=== PATIENT | female | born 1965 | race Caucasian/White ===

== ENCOUNTER 2021-06-30 18:14 | Emergency (ER) | payer BC ==
[2021-06-30 18:58] VITALS: RESP 18
[2021-06-30] MEDS ORDERED: IBUPROFEN 800 MG TAB PO STA (20:07)
[2021-06-30] MEDS ORDERED: DIPH,PERTUS(ACELL)TETVAC-LF 0.5 ML VIAL IM ONE (20:12)
--- NOTE | 2021-06-30 20:12 | ED ---
Fall HPI - General Chief Complaint: Fall Stated Complaint: Fall/shoulder injury Source: patient Mode of arrival: ambulatory - History of Present Illness Initial Comments: A 56-year-old well-appearing pleasant white female, presents to the emergency room with complaints of walking backwards today around 6 PM and tripping landing on her right arm. Patient states the pain is to her right upper arm, states it is not her shoulder. She states the position of comfort is close to her chest. She denies hitting her head or any loss of consciousness. She has also sustained an abrasion to her right elbow. She states that she has no other medical history other than psoriasis and bad knees. 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 Loss of Consciousness: none Prolonged Down Time?: no Symptoms Prior to Fall: none Location - Extremities: Right: Arm Severity scale (1-10): 8 Quality: sharp Context: tripped/slipped Associated Symptoms: denies - Related Data Home Medications Medication Instructions Recorded Confirmed Aspirin EC [Ecotrin Low Dose] 81 mg PO DAILY 06/30/21 06/30/21 Enalapril [Vasotec] 5 mg PO DAILY 06/30/21 06/30/21 Escitalopram Oxalate [Lexapro] 20 mg PO DAILY 06/30/21 06/30/21 [place] Carbonate 300 mg PO BID 06/30/21 06/30/21 buPROPion XL [Wellbutrin Xl] 300 mg PO DAILY 06/30/21 06/30/21 Allergies Allergy/AdvReac Type Severity Reaction Status Date / Time No Known Allergies Allergy Verified 06/30/21 20:19 Review of Systems ROS Statement: Those systems with pertinent positive or pertinent negative responses have been documented in the HPI. ROS Other: All systems not noted in ROS Statement are negative. Past Medical History Past Medical History: Hypertension History of Any Multi-Drug Resistant Organisms: None Reported Past Surgical History: No Surgical Hx Reported Past Psychological History: Bipolar Smoking Status: Never smoker Past Alcohol Use History: None Reported Past Drug Use History: None Reported General Exam Limitations: no limitations General appearance: alert, in no apparent distress Head exam: Present: atraumatic, normocephalic, normal inspection Eye exam: Present: normal appearance, PERRL, EOMI. Absent: scleral icterus, conjunctival injection, periorbital swelling ENT exam: Present: normal exam, normal oropharynx, mucous membranes moist Neck exam: Present: normal inspection, full ROM. Absent: tenderness, meningismus, lymphadenopathy, thyromegaly Respiratory exam: Present: normal lung sounds bilaterally. Absent: respiratory distress, wheezes, rales, rhonchi, stridor Cardiovascular Exam: Present: regular rate, normal rhythm, normal heart sounds. Absent: systolic murmur, diastolic murmur, rubs, gallop, clicks GI/Abdominal exam: Present: soft, normal bowel sounds. Absent: distended, tenderness, guarding, rebound, rigid Right Upper Arm exam: Present: normal inspection, tenderness (pain at Proximal humerus). Absent: full ROM, swelling, laceration, ecchymosis, deformity Elbow exam: Present: abrasion. Absent: tenderness Forearm Wrist exam: Present: normal inspection, full ROM. Absent: tenderness Hand Wrist exam: Present: normal inspection, full ROM. Absent: tenderness Vascular: Present: normal capillary refill, radial pulse. Absent: vascular compromise Back exam: Present: full ROM. Absent: tenderness, CVA tenderness (R), CVA tenderness (L), muscle spasm, paraspinal tenderness, vertebral tenderness Neurological exam: Present: alert, oriented X3, CN II-XII intact Psychiatric exam: Present: normal affect, normal mood Skin exam: Present: warm, dry, intact, normal color. Absent: rash Course Vital Signs 06/30/21 06/30/21 18:48 21:44 Temperature 98.7 F 98.0 F Pulse Rate 95 90 Respiratory 18 18 Rate Blood Pressure 160/91 156/78 O2 Sat by Pulse 94 L 95 Oximetry Medical Decision Making - Medical Decision Making X-ray of the right humerus shows no fracture or dislocation. X-ray of right shoulder shows no fracture dislocation. Patient has no point tenderness along the clavicle. She states that after Motrin was given she has more movement and less pain. She'll be placed in a sling and instructed to follow-up with orthopedics within one week and return if any increasing pain. Directed to try to move the shoulder gently to avoid frozen shoulder. Case discussed with Dr. Adrian. Disposition Clinical Impression: Shoulder injury Disposition: HOME SELF-CARE Condition: Good Instructions (If sedation given, give patient instructions): Fall Prevention for Older Adults (ED), Shoulder Sprain (ED) Additional Instructions: Use sling for the next few days, follow-up with orthopedics within 1 week. Use Motrin as needed for pain. Return if any worsening pain, numbness or tingling. Is patient prescribed a controlled substance at d/c from ED?: No Referrals: Nonstaff,Physician [Primary Care Provider] - 1-2 days Teodoro Buck DO [Doctor of Osteopathic Medicine] - 1-2 days Time of Disposition: 21:23
--- NOTE | 2021-06-30 20:50 | XR ---
EXAMINATION TYPE: XR shoulder complete RT DATE OF EXAM: 06/30/2021 COMPARISON: NONE HISTORY: Pain TECHNIQUE: 3 views FINDINGS: There is no sign of fracture nor dislocation. Glenohumeral joint is intact. IMPRESSION: Negative right shoulder exam.
--- NOTE | 2021-06-30 21:02 | XR ---
EXAMINATION TYPE: XR humerus RT DATE OF EXAM: 06/30/2021 COMPARISON: NONE HISTORY: Pain TECHNIQUE: 2 views FINDINGS: Elbow joint and shoulder joint appear intact. I see no fracture nor dislocation. There are no pathologic calcifications. IMPRESSION: Negative right humerus exam.
[2021-06-30] MEDS ORDERED: BACITRACIN OINT 1 EACH PACKET TOPICAL ONE (21:23)
[2021-06-30 21:45] VITALS: BP 156/78; PULSE 90; TEMP 98
== END 2021-06-30 21:45 | disposition home or self-care (01) ==
LOC: EC 18:14
DX: S49.91XA Unspecified injury of right shoulder and upper arm, initial encounter (principal); I10 Essential (primary) hypertension; F31.9 Bipolar disorder, unspecified; Z79.82 Long term (current) use of aspirin; W01.0XXA Fall on same level from slipping, tripping and stumbling without subsequent striking against object, initial encounter
CPT/HCPCS: 99283

== ENCOUNTER 2021-11-09 15:21 | Inpatient (IN) | payer MEDICARE ==
--- NOTE | 2021-11-09 16:09 | ED ---
General Adult HPI - General Chief complaint: Psychiatric Symptoms Stated complaint: Petition Time Seen by Provider: 11/09/21 15:55 Source: patient, police Mode of arrival: ambulatory - History of Present Illness Initial comments: This 56-year-old female presents for court ordered psychiatric evaluation. Her son filled out paperwork in this regard. She apparently has a history of bipolar disorder with 14+ psychiatric admissions in the past for similar situations. The patient has been having very bizarre behavior and thought processes. She talks about Satan a lot now she is out to get him. She denies any hallucinations or delusions. She denies any anxiety or depression. She does admit that she has bipolar disorder and states that she is currently taking her medications and is on lithium. She denies any current medical complaints. No other modifying factors. The exact time duration of the symptomatology is difficult to differentiate. History is somewhat limited due to patient's psychosis. - Related Data Home Medications Medication Instructions Recorded Confirmed Aspirin EC [Ecotrin Low Dose] 81 mg PO DAILY 06/30/21 06/30/21 Enalapril [Vasotec] 5 mg PO DAILY 06/30/21 06/30/21 Escitalopram Oxalate [Lexapro] 20 mg PO DAILY 06/30/21 06/30/21 [place] Carbonate 300 mg PO BID 06/30/21 06/30/21 buPROPion XL [Wellbutrin Xl] 300 mg PO DAILY 06/30/21 06/30/21 Allergies Allergy/AdvReac Type Severity Reaction Status Date / Time No Known Allergies Allergy Verified 11/09/21 15:41 Review of Systems ROS Statement: Those systems with pertinent positive or pertinent negative responses have been documented in the HPI. ROS Other: All systems not noted in ROS Statement are negative. Past Medical History Past Medical History: Hypertension History of Any Multi-Drug Resistant Organisms: None Reported Past Surgical History: No Surgical Hx Reported Past Psychological History: Bipolar Smoking Status: Never smoker Past Alcohol Use History: None Reported Past Drug Use History: None Reported General Exam - General Exam Comments Initial Comments: GENERAL: The patient is well nourished and well hydrated. VITAL SIGNS: Heart rate, blood pressure, respiratory rate reviewed as recorded in nurse's notes. EYES: Pupils are round and reactive. Extraocular movements are intact. No conjunctival / lid redness or swelling. ENT: No external evidence of injury, swelling, or ecchymosis. Airway is patent. Throat is clear. NECK: Nontender. No swelling or evidence of injury. No subcutaneous emphysema. Trachea is midline. No thyroid mass. HEART: Regular rate and rhythm. Good peripheral pulses. LUNGS/CHEST: Breath sounds clear and equal bilaterally. No rales, rhonchi, or wheezes. No ecchymosis, subcutaneous emphysema, or tenderness. ABDOMEN: Abdomen soft without tenderness. No palpable masses or organomegaly. No peritoneal signs. No abdominal wall swelling or ecchymosis. EXTREMITIES: No extremity tenderness. Normal muscle tone and function. No thoracolumbar tenderness. NEUROLOGIC: Sensation is grossly intact. Cranial nerve exam reveals face is symmetrical, tongue is midline, speech is clear. SKIN: No abrasions or ecchymosis is noted. A diffuse rash is noted. This is scaly and consistent with her history of psoriasis. PSYCHIATRIC: Alert and pleasant, cooperative. She appears to have very bizarre thought processes and congregational grandiose thoughts. Course Vital Signs 11/09/21 15:37 Temperature 98.4 F Pulse Rate 76 Respiratory 18 Rate Blood Pressure 153/92 O2 Sat by Pulse 96 Oximetry Medical Decision Making - Medical Decision Making The patient is seen and examined. Social work/psychiatric consult is placed. Court ordered petition is reviewed. Laboratory and urine screen are ordered. Laboratory was reviewed and overall appears to be fairly unremarkable but the lithium level is subtherapeutic. It is felt as though the patient may be medically cleared for further psychiatric evaluation. Of note, she becomes quite overtly verbal, aggressive, and is yelling multiple extreme profanities. She threw up potato at the observer. She receives 10 mg of Zyprexa with limited relief. This was given intramuscularly. She later received 2 mg of Ativan and this seemed to help her symptomatology. It is felt strongly that she would require additional psychiatric treatment. Stat follow-up that he was recognized from the Internet from being on national he recognized psychotic episodes while at [place] in the past. The psychiatric team will be evaluating her in the near future. - Lab Data Result diagrams: 11/09/21 16:34 11/09/21 16:34 Lab Results 11/09/21 11/09/21 Range/Units 16:34 16:34 WBC 7.5 (3.8-10.6) k/uL RBC 4.25 (3.80-5.40) m/uL Hgb 13.1 (11.4-16.0) gm/dL Hct 40.3 (34.0-46.0) % MCV 94.7 (80.0-100.0) fL MCH 30.9 (25.0-35.0) pg MCHC 32.6 (31.0-37.0) g/dL RDW 13.7 (11.5-15.5) % Plt Count 302 (150-450) k/uL MPV 6.5 Neutrophils % 54 % Lymphocytes % 32 % Monocytes % 4 % Eosinophils % 5 % Basophils % 1 % Neutrophils # 4.1 (1.3-7.7) k/uL Lymphocytes # 2.4 (1.0-4.8) k/uL Monocytes # 0.3 (0-1.0) k/uL Eosinophils # 0.4 (0-0.7) k/uL Basophils # 0.1 (0-0.2) k/uL Sodium 139 (137-145) mmol/L Potassium 4.1 (3.5-5.1) mmol/L Chloride 105 (98-107) mmol/L Carbon Dioxide 26 (22-30) mmol/L Anion Gap 8 mmol/L BUN 21 H (7-17) mg/dL Creatinine 1.03 (0.52-1.04) mg/dL Est GFR (CKD-EPI)AfAm 71 (>60 ml/min/1.73 sqM) Est GFR (CKD-EPI)NonAf 62 (>60 ml/min/1.73 sqM) Glucose 103 H (74-99) mg/dL Calcium 9.7 (8.4-10.2) mg/dL [place] 0.4 mmol/L Disposition Clinical Impression: Acute psychosis, Bipolar disorder Disposition: ADMITTED IP TO THIS HOSP Condition: Fair Is patient prescribed a controlled substance at d/c from ED?: No Referrals: None,Stated [REFERRING] - 1-2 days Time of Disposition: 19:08
[2021-11-09 16:43] LABS: Basophils # (A) 0.1 k/uL (0-0.2); Basophils % (A) 1 %; Eosinophils # (A) 0.4 k/uL (0-0.7); Eosinophils % (A) 5 %; HCT 40.3 % (34.0-46.0); HGB 13.1 gm/dL (11.4-16.0); Lymphocytes # (A) 2.4 k/uL (1.0-4.8); Lymphocytes % (A) 32 %; MCH 30.9 pg (25.0-35.0); MCHC 32.6 g/dL (31.0-37.0); MCV 94.7 fL (80.0-100.0); Mean Platelet Volume 6.5; Monocytes # (A) 0.3 k/uL (0-1.0); Monocytes % (A) 4 %; Neutrophils # (A) 4.1 k/uL (1.3-7.7); Neutrophils % (A) 54 %; Platelet Count 302 k/uL (150-450); RBC 4.25 m/uL (3.80-5.40); RDW 13.7 % (11.5-15.5); WBC 7.5 k/uL (3.8-10.6)
[2021-11-09 16:56] LABS: Calcium 9.7 mg/dL (8.4-10.2); Lithium 0.4 mmol/L; Potassium 4.1 mmol/L (3.5-5.1)
[2021-11-09] MEDS ORDERED: OLANZapine 10 MG VIAL IM STA (17:33)
[2021-11-09] MEDS ORDERED: LORazepam 2 MG/ML INJ IM STA (18:01)
--- NOTE | 2021-11-09 20:16 | CT ---
EXAMINATION TYPE: CT brain wo con CT DLP: 1217.4 mGycm, Automated exposure control for dose reduction was used. DATE OF EXAM: 11/09/2021 7:47 PM COMPARISON: None. CLINICAL INDICATION:Female, 56 years old with history of altered mental status; TECHNIQUE: Brain: Multiple axial CT images of the brain were obtained without IV contrast. FINDINGS: Brain: Extra-axial spaces: No abnormal extra-axial fluid collections. Ventricular system: Within normal limits Cerebral parenchyma: Right cheng radiata/caudate nucleus density which may represent prominent is lo be lacunar injury. No acute intraparenchymal hemorrhage or mass effect. The blount-white junction is w ell differentiated. Cerebellum: Unremarkable. Mass effect: No evidence of midline shift. Intracranial vasculature: unremarkable Soft tissues: Normal. Calvarium/osseous structures: No depressed skull fracture. Paranasal sinuses and mastoid air cells: Clear. Visualized orbits: Orbital contents are intact. IMPRESSION: No acute intracranial process.
[2021-11-10] MEDS ORDERED: LORazepam 1 MG TAB PO PRN ×2 (00:53→12:47)
[2021-11-10] MEDS ORDERED: MAG HYDROX/AL HYDROX/SIMETH 30 ML CUP PO PRN (00:53)
[2021-11-10] MEDS ORDERED: ACETAMINOPHEN TAB 325 MG TAB PO PRN (00:53)
[2021-11-10] MEDS ORDERED: MAGNESIUM HYDROXIDE 2,400 MG/10 ML CUP PO PRN (00:53)
[2021-11-10] MEDS ORDERED: haloperidoL 5 MG TAB PO PRN (00:55)
[2021-11-10] MEDS ORDERED: LORazepam 2 MG/ML INJ IM PRN ×2 (00:55→12:47)
[2021-11-10 00:58] LABS: Appearance,Urine Clear (Clear); Bilirubin,Urine Negative (Negative); Blood,Urine Negative (Negative); Color,Urine Light Yellow; Glucose,Urine (UA) Negative (Negative); Ketones,Urine Negative (Negative); Leukocyte Esterase,Urine Negative (Negative); Nitrite,Urine Negative (Negative); Protein,Urine Negative (Negative); Specific Gravity,Urine 1.012 (1.001-1.035); Urobilinogen,Urine <2.0 mg/dL (<2.0)
[2021-11-10 01:26] LABS: Amphetamine Screen,Urine Not Detected (NotDetected); Barbiturate Screen,Urine Not Detected (NotDetected); Benzodiazepines Screen,Urine Not Detected (NotDetected); Cocaine Screen,Urine Not Detected (NotDetected); Methadone Screen, Urine Not Detected (NotDetected); Opiate Screen,Urine Not Detected (NotDetected); Oxycodone Screen, Urine Not Detected (NotDetected); Phencyclidine Screen,Urine Not Detected (NotDetected); Tricyclic Antidepressant,Urine Not Detected (NotDetected); Urn Cannabinoid Scrn Not Detected (NotDetected)
[2021-11-10] MEDS: traZODone HCL 50 MG TAB PO SCH ×2 (03:14→21:01)
[2021-11-10] MEDS: ASPIRIN 81 MG PO SCH (08:37)
[2021-11-10] MEDS: lisinopriL 10 MG TAB PO SCH (08:37)
[2021-11-10] MEDS: LITHIUM CARBONATE 300 MG CAP PO SCH ×2 (08:38→13:50)
[2021-11-10] MEDS ORDERED: diphenhydrAMINE 50 MG/ML 1 ML VIAL IM STA (12:13)
[2021-11-10] MEDS ORDERED: diphenhydrAMINE 50 MG/ML 1 ML VIAL ONE (12:14)
[2021-11-10] MEDS: HALOPERIDOL LACTATE 5 MG/ML 1 ML VIAL IM PRN (12:25)
--- NOTE | 2021-11-10 12:30 | P.MHFACE ---
Face to Face Restrain/Seclus - Evaluation Patient's Immediate Situation: Endangers self safety, Endangers others' safety, Endangers staff safety, Violent behavior Patient's Reaction to the Intervention: Angry, Hostile, Belligerent, Suspicious, Aggressive, Combative Patient's Medical & Behavioral Condition: Awake, Manic, Flight of ideas, Bizarre behavior Need to Continue or Terminate Restraint or Seclusion: Continue Need to Continue or Terminate Restraint/Seclusion - Comment: Continue restraints as we await response to medications. Face to Face Eval of Restraint Date: 11/10/21 Face to Face Eval of Restraint Time: 12:20
[2021-11-10] MEDS ORDERED: diphenhydrAMINE 50 MG/ML 1 ML VIAL IM PRN (12:53)
--- NOTE | 2021-11-10 13:35 | P.HP ---
Psychiatric H&P - . H&P Date: 11/10/21 History & Physical: Allergies Allergy/AdvReac Type Severity Reaction Status Date / Time No Known Allergies Allergy Verified 11/09/21 15:41 Vital Signs Temp 97.5 F L 11/10/21 01:55 Pulse 79 11/10/21 08:39 Resp 18 11/10/21 01:55 BP 131/62 11/10/21 08:39 Pulse Ox 98 11/10/21 01:55 Intake & Output 11/09/21 11/10/21 11/10/21 18:59 06:59 18:59 Weight 113.398 kg 109.344 kg Laboratory Last Values WBC 7.5 k/uL (3.8-10.6) 11/09/21 16:34 RBC 4.25 m/uL (3.80-5.40) 11/09/21 16:34 Hgb 13.1 gm/dL (11.4-16.0) 11/09/21 16:34 Hct 40.3 % (34.0-46.0) 11/09/21 16:34 MCV 94.7 fL (80.0-100.0) 11/09/21 16:34 MCH 30.9 pg (25.0-35.0) 11/09/21 16:34 MCHC 32.6 g/dL (31.0-37.0) 11/09/21 16:34 RDW 13.7 % (11.5-15.5) 11/09/21 16:34 Plt Count 302 k/uL (150-450) 11/09/21 16:34 MPV 6.5 11/09/21 16:34 Neutrophils % 54 % 11/09/21 16:34 Lymphocytes % 32 % 11/09/21 16:34 Monocytes % 4 % 11/09/21 16:34 Eosinophils % 5 % 11/09/21 16:34 Basophils % 1 % 11/09/21 16:34 Neutrophils # 4.1 k/uL (1.3-7.7) 11/09/21 16:34 Lymphocytes # 2.4 k/uL (1.0-4.8) 11/09/21 16:34 Monocytes # 0.3 k/uL (0-1.0) 11/09/21 16:34 Eosinophils # 0.4 k/uL (0-0.7) 11/09/21 16:34 Basophils # 0.1 k/uL (0-0.2) 11/09/21 16:34 Sodium 139 mmol/L (137-145) 11/09/21 16:34 Potassium 4.1 mmol/L (3.5-5.1) 11/09/21 16:34 Chloride 105 mmol/L (98-107) 11/09/21 16:34 Carbon Dioxide 26 mmol/L (22-30) 11/09/21 16:34 Anion Gap 8 mmol/L 11/09/21 16:34 BUN 21 mg/dL (7-17) H 11/09/21 16:34 Creatinine 1.03 mg/dL (0.52-1.04) 11/09/21 16:34 Est GFR (CKD-EPI)AfAm 71 (>60 ml/min/1.73 sqM) 11/09/21 16:34 Est GFR (CKD-EPI)NonAf 62 (>60 ml/min/1.73 sqM) 11/09/21 16:34 Glucose 103 mg/dL (74-99) H 11/09/21 16:34 Calcium 9.7 mg/dL (8.4-10.2) 11/09/21 16:34 Urine Color Light Yellow 11/10/21 00:34 Urine Appearance Clear (Clear) 11/10/21 00:34 Urine pH 6.0 (5.0-8.0) 11/10/21 00:34 Ur Specific [place] 1.012 (1.001-1.035) 11/10/21 00:34 Urine Protein Negative (Negative) 11/10/21 00:34 Urine Glucose (UA) Negative (Negative) 11/10/21 00:34 Urine Ketones Negative (Negative) 11/10/21 00:34 Urine Blood Negative (Negative) 11/10/21 00:34 Urine Nitrite Negative (Negative) 11/10/21 00:34 Urine Bilirubin Negative (Negative) 11/10/21 00:34 Urine Urobilinogen <2.0 mg/dL (<2.0) 11/10/21 00:34 Ur Leukocyte Esterase Negative (Negative) 11/10/21 00:34 Urine Opiates Screen Not Detected (NotDetected) 11/10/21 00:34 Ur Oxycodone Screen Not Detected (NotDetected) 11/10/21 00:34 Urine Methadone Screen Not Detected (NotDetected) 11/10/21 00:34 Ur Propoxyphene Screen Not Detected (NotDetected) 11/10/21 00:34 Ur Barbiturates Screen Not Detected (NotDetected) 11/10/21 00:34 U Tricyclic Antidepress Not Detected (NotDetected) 11/10/21 00:34 Ur Phencyclidine Scrn Not Detected (NotDetected) 11/10/21 00:34 Ur Amphetamines Screen Not Detected (NotDetected) 11/10/21 00:34 U Methamphetamines Scrn Not Detected (NotDetected) 11/10/21 00:34 U Benzodiazepines Scrn Not Detected (NotDetected) 11/10/21 00:34 [place] 0.4 mmol/L 11/09/21 16:34 Urine Cocaine Screen Not Detected (NotDetected) 11/10/21 00:34 U Marijuana (THC) Screen Not Detected (NotDetected) 11/10/21 00:34 Coronavirus (PCR) Not Detected (Not Detectd) 11/09/21 21:41 11/10/21 13:26 IDENTIFYING DATA: Patient is a 56-year-old female who currently lives alone in the house has one son. She has a history of dipolar disorder HPI: Patient presented to the hospital yesterday on petition by her son who stat ed that patient has been having poor sleep and has been religiously preoccupied and speaking about Satan and has been very delusional and aggressive. Patient apparently has a history of bipolar disorder with multiple psychiatric hospitalizations and was acting bizarre and aggressive in the ER yesterday. She required when necessary Zyprexa and Ativan for her aggression as she was yelling and throwing things at staff members. Patient had a computed tomography scan of her brain which was negative. UDS and UA were negative. Her lithium level was 0.4 on admission. Patient was brought in by the police for evaluation and treatment. Patient was admitted to the psychiatric unit involuntarily. She was seen at the bedside today with a female nurse implementation technician present. Patient was initially directable in conversation however was preoccupied with "Karl" and states that "Satan is desperate and trying to control me. He accuses health underwriter of working with [facility] to bring her into the hospital. She spoke about a "Jaimes of fire and states that "Karl doesn't want to go to hell". She was fairly illogical and loose associations. As the conversation progressed she became more agitated and impulsive with health underwriter. She called the health underwriter a "pussy" and states that she will be refusing the medications. She claims that she decompensates every year around this time. She states that she has been having poor sleep and claims she has a fair appetite. She claims that she has been taking her psychiatric meds however does not apparently see a psychiatrist. She was alert and oriented 3 however had very poor insight in judgment and poor hygiene and grooming.. Patient denies any suicidal or homicidal ideations intent or plan. At this time patient denies any auditory or visual hallucinations. She denies any recreational drug use. PAST PSYCHIATRIC HISTORY: Patient states that bipolar disorder since the age of [age] years old. She claims that she is on lithium, Wellbutrin and Lexapro. She claims that she has been to several psychiatric hospitals in the past and claims that her last admission was 2 years ago possibly at [facility]. Patient denies any psychiatric outpatient follow-up. She states that she does have a history of self-injurious behaviors where she "knawed on my arm" PMH:psoriasis, htn ALLERGIES: as per EMR CHEMICAL DEPENDENCY HISTORY: as per HPI FAMILY PSYCHIATRIC/SUBSTANCE USE HISTORY: States that her mother and grandmother had bipolar disorder. SOCIAL HISTORY: Patient was born and raised in [facility]. She states that she completed up to the 10th grade in school. She claims that she has been in long-term in the past for "destruction of property". She has 1 son and lives alone in a house. MENTAL STATUS EXAM: General Appearance: Patient appears to be overweight, various psoriatic plaques over her arms, stated age is alert, aggressive and hostile at times. Patient appears to have poor hygiene and grooming. Behavior: Patient is intrusive and aggressive Speech: Patient's speech is rapid and loud tone. Mood/Affect: Patient reports their mood is "fine", affect is congruent and labile Suicidality/Homicidality: Patient denies having any homicidal ideation intent or plan. Denies any suicidal ideations intent or plan Perceptions: Patient denies any visual hallucinations and denies any auditory hallucinations Though content/process: Rambles, tangential, illogical, loose associations, flight of ideas. Memory and concentration: AOX3, grossly intact for the purposes of this session. Can spell "WORLD" backwards Judgment and insight: poor STRENGTHS/WEAKNESSES: strength is that patient is resilient. Weakness is that patient has poor judgment and is impulsive INTELLECT: average IMPRESSIONS: Bipolar disorder, current episode manic with psychotic features PLAN: -Patient is admitted under involuntary status to [facility] for stabilization of psychiatric symptoms and safety. Patient has not signed adult voluntary form and medication consent and is placed in patient's chart. A second certification was completed and along with petition will be filed for court. -Medications : Will start patient on Abilify 7.5 mg daily for mood stabilization/psychosis. We will attempt to transition patient onto long-acting injection prior to discharge. Can continue with lithium 450 mg twice a day for mood stabilization. Trazodone 50 mg daily at bedtime for sleep. -Ativan, Benadryl and Haldol PRN for agitation/aggression -Patient was informed of the risks, benefits and side effects of the medication and patient was refusing to take medications. -Internal Medicine consult to perform medical evaluation and physical. -NRT -not needed as patient does not smoke -SW on board for discharge planning. Encourage patient to participate in groups to work on coping skills. Will await deferral and court date.
[2021-11-10] MEDS: ARIPiprazole 5 MG TAB PO SCH ×2 (13:42→13:50)
[2021-11-10] MEDS: LITHIUM CARBONATE 150 MG CAP PO SCH (21:01)
--- NOTE | 2021-11-11 01:04 | P.PN ---
Progress Note - Text Progress Note Date: 11/11/21 Patient uncooperative and sedated. Unable to evaluate. Will attempt again tomorrow.
[2021-11-11] MEDS: LITHIUM CARBONATE 150 MG CAP PO SCH ×2 (13:28→22:07)
[2021-11-11] MEDS: lisinopriL 10 MG TAB PO SCH (13:53)
[2021-11-11] MEDS: ASPIRIN 81 MG PO SCH (13:53)
[2021-11-11] MEDS: ARIPiprazole 5 MG TAB PO SCH (13:53)
--- NOTE | 2021-11-11 14:21 | P.PN ---
Progress Note - Text Progress Note Date: 11/11/21 Interval History: Patient was seen lying in the quiet room and was just waking up from sleep. P cheri required prn medication last night due to agitation and aggression and was also requiring restraints yesterday. Patient responded to her name. She continues to be delusional in speaking about Satan telling her to do things. She was refusing the medications morning and stated that she does not need them. She was asked if she would take another antipsychotic medication however patient refused other options claiming very vague problems with them. She continues to have very poor impulsivity and poor judgment. She continues to make bizarre statements and religiously preoccupied. At this time patient denies any suicidal or homical ideations, intent or plan. Patient denies any auditory, visual hallucinations. She has been refusing medications. Mental Status Exam: General Appearance: Patient appears to be overweight, various psoriatic plaques over her arms, stated age is lethargic and laying in bed. Patient appears to have poor hygiene and grooming. Behavior: Patient is intrusive and lethargic, laying in bed. Uncooperative Speech: Patient's speech is rapid and loud tone. Mood/Affect: Patient reports their mood is "ok", affect is congruent Suicidality/Homicidality: Patient denies having any homicidal ideation intent or plan. Denies any suicidal ideations intent or plan Perceptions: Patient denies any visual hallucinations and denies any auditory hallucinations Though content/process: Rambles, tangential, illogical, loose associations, flight of ideas. Memory and concentration: AOX3, grossly intact for the purposes of this session. Can spell "WORLD" backwards Judgment and insight: poor Assessment Bipolar disorder, current episode manic with psychotic features Plan: -Patient continues to meet criteria for inpatient psychiatric admission for symptom stabilization and safety. Patient has not signed adult voluntary form and medication consent and was placed in patient's chart. -Medications: Continue with Abilify 7.5 mg daily for mood stabilization/psychosis. We will attempt to transition patient onto long-acting injection prior to discharge. Continue with lithium 450 mg twice a day for mood stabilization. increase Trazodone 100 mg daily at bedtime for sleep. -When necessary Ativan, Benadryl and Haldol for agitation/aggression. -NRT - not needed as patient does not smoke -SW on board for discharge planning. Encouraged the patient to participate in milieu. Currently awaiting deferral with human resources department supervisor and court date.
[2021-11-11] MEDS: HALOPERIDOL LACTATE 5 MG/ML 1 ML VIAL IM PRN (14:52)
[2021-11-11] MEDS: traZODone HCL 100 MG TAB PO SCH (22:07)
--- NOTE | 2021-11-12 00:45 | P.PN ---
Progress Note - Text Progress Note Date: 11/12/21 Patient currently manic and not appropriate for evaluation. Will attempt again tomorrow.
[2021-11-12] MEDS: traZODone HCL 100 MG TAB PO SCH (01:20)
[2021-11-12] MEDS: LITHIUM CARBONATE 150 MG CAP PO SCH ×2 (01:20→11:52)
--- NOTE | 2021-11-12 11:36 | P.PN ---
Progress Note - Text Progress Note Date: 11/12/21 Interval History: Patient was seen lying in the quiet room and was just waking up from sleep. Kiera krause was accompanied by security trainer today for interview with patient due to her impulsivity and agitation previously. Patient was sleeping and was awoken briefly by principal technical writer. She was fairly concrete and was less focused on her delusions today. She minimally spoke about Satan today. She claims that she still does not want to take Abilify however was offered Prolixin and states that she has taken that in the past and was willing to take it today. Cordwood Cutter spoke with patient about her rights and also to speak with the checkering machine adjuster today about the deferral. Patient claims that she did not sleep well last night. She has very minimal insight into her condition and need for treatment. She apparently was fairly disruptive during group yesterday. She was refusing the medications morning and stated that she does not need them. At this time patient denies any suicidal or homical ideations, intent or plan. Patient denies any auditory, visual hallucinations. She has been refusing medications. Mental Status Exam: General Appearance: Patient appears to be overweight, various psoriatic plaques over her arms, stated age is lethargic and laying in bed. Patient appears to have poor hygiene and grooming. Behavior: Patient is intrusive and lethargic, laying in bed. Uncooperative, improving mildly Speech: Patient's speech is rapid and soft today Mood/Affect: Patient reports their mood is "fine", affect is congruent and constricted Suicidality/Homicidality: Patient denies having any homicidal ideation intent or plan. Denies any suicidal ideations intent or plan Perceptions: Patient denies any visual hallucinations and denies any auditory hallucinations Though content/process: illogical, loose associations, flight of ideas, improving mildly. Less delusional today. Memory and concentration: AOX3, grossly intact for the purposes of this session. Can spell "WORLD" backwards Judgment and insight: Chronically poor Assessment Bipolar disorder, current episode manic with psychotic features Plan: -Patient continues to meet criteria for inpatient psychiatric admission for symptom stabilization and safety. Patient has not signed adult voluntary form and medication consent and was placed in patient's chart. -Medications: Discontinued Abilify as patient is not agreeable to take this and would rather take Prolixin. Starting Prolixin by mouth 5 mg twice a day for psychosis/mood stabilization. We will attempt to transition patient onto long- acting injection prior to discharge. Continue with lithium 450 mg twice a day for mood stabilization. Trazodone 100 mg daily at bedtime for sleep. -When necessary Ativan, Benadryl and Haldol for agitation/aggression. -NRT - not needed as patient does not smoke -SW on board for discharge planning. Encouraged the patient to participate in milieu. Patient's deferral is today and full court hearing is December 01.
[2021-11-12] MEDS ORDERED: LITHIUM CARBONATE 150 MG CAP PO STA (11:45)
[2021-11-12] MEDS: lisinopriL 10 MG TAB PO SCH (11:51)
[2021-11-12] MEDS: ASPIRIN 81 MG PO SCH (11:52)
[2021-11-12] MEDS: ARIPiprazole 5 MG TAB PO SCH (11:57)
--- NOTE | 2021-11-12 23:01 | P.PN ---
Progress Note - Text Progress Note Date: 11/12/21 The patient refused to be seen or evaluated.
[2021-11-13] MEDS: LITHIUM CARBONATE 150 MG CAP PO SCH ×3 (02:15→21:00)
[2021-11-13] MEDS: lisinopriL 10 MG TAB PO SCH (08:59)
[2021-11-13] MEDS: ASPIRIN 81 MG PO SCH (09:00)
--- NOTE | 2021-11-13 12:19 | P.PN ---
Subjective Progress Note Date: 11/13/21 Principal diagnosis: Assessment: Bipolar disorder current episode manic with psychotic features Subjective data: Patient was seen for a follow-up where she became extremely irritated and angry when woken up Patient started using foul language Further attempt to interview the patient was abandoned to avoid any further escalation knowing her current history Objective data: The patient remains delusional agitated impulsive and aggressive Patient exhibits flight of ideas and looseness of associations Patient also exhibits paranoia Patient's formal and operational judgment and insight are poor No EPS or tremors noted Assessment: Bipolar disorder, current episode manic with psychotic features Plan: Continue supportive care Avoid any escalation of provocation by keeping in a low stimulating area and supportive care Maintain safety precautions The patient has been started on Prolixin in 5 mg twice a day and long-acting injection is recommended prior to discharge Patient is also being continued on lithium carbonate 450 mg twice a day for mood stabilization and trazodone 100 mg at bedtime for insomni Donnie Wright MD 11/13/21 Objective - Vital Signs Vital signs: Vital Signs Temp 97.6 F 11/13/21 02:17 Pulse 89 11/13/21 09:28 Resp 16 11/13/21 09:28 BP 116/70 11/13/21 09:28 Pulse Ox 96 11/12/21 01:19 - Labs CBC & Chem 7: 11/09/21 16:34 11/09/21 16:34
[2021-11-13] MEDS: traZODone HCL 100 MG TAB PO SCH (21:00)
[2021-11-14] MEDS: LITHIUM CARBONATE 150 MG CAP PO SCH (10:02)
[2021-11-14] MEDS: ASPIRIN 81 MG PO SCH (10:02)
[2021-11-14] MEDS: lisinopriL 10 MG TAB PO SCH (10:02)
--- NOTE | 2021-11-14 12:38 | P.HP ---
Psychiatric H&P - . H&P Date: 11/14/21 History & Physical: Allergies Allergy/AdvReac Type Severity Reaction Status Date / Time No Known Allergies Allergy Verified 11/09/21 15:41 Vital Signs Temp 96.9 F L 11/14/21 05:22 Pulse 76 11/14/21 05:22 Resp 16 11/14/21 05:22 BP 136/59 11/14/21 05:22 Pulse Ox 96 11/12/21 01:19 Laboratory Last Values WBC 7.5 k/uL (3.8-10.6) 11/09/21 16:34 RBC 4.25 m/uL (3.80-5.40) 11/09/21 16:34 Hgb 13.1 gm/dL (11.4-16.0) 11/09/21 16:34 Hct 40.3 % (34.0-46.0) 11/09/21 16:34 MCV 94.7 fL (80.0-100.0) 11/09/21 16:34 MCH 30.9 pg (25.0-35.0) 11/09/21 16:34 MCHC 32.6 g/dL (31.0-37.0) 11/09/21 16:34 RDW 13.7 % (11.5-15.5) 11/09/21 16:34 Plt Count 302 k/uL (150-450) 11/09/21 16:34 MPV 6.5 11/09/21 16:34 Neutrophils % 54 % 11/09/21 16:34 Lymphocytes % 32 % 11/09/21 16:34 Monocytes % 4 % 11/09/21 16:34 Eosinophils % 5 % 11/09/21 16:34 Basophils % 1 % 11/09/21 16:34 Neutrophils # 4.1 k/uL (1.3-7.7) 11/09/21 16:34 Lymphocytes # 2.4 k/uL (1.0-4.8) 11/09/21 16:34 Monocytes # 0.3 k/uL (0-1.0) 11/09/21 16:34 Eosinophils # 0.4 k/uL (0-0.7) 11/09/21 16:34 Basophils # 0.1 k/uL (0-0.2) 11/09/21 16:34 Sodium 139 mmol/L (137-145) 11/09/21 16:34 Potassium 4.1 mmol/L (3.5-5.1) 11/09/21 16:34 Chloride 105 mmol/L (98-107) 11/09/21 16:34 Carbon Dioxide 26 mmol/L (22-30) 11/09/21 16:34 Anion Gap 8 mmol/L 11/09/21 16:34 BUN 21 mg/dL (7-17) H 11/09/21 16:34 Creatinine 1.03 mg/dL (0.52-1.04) 11/09/21 16:34 Est GFR (CKD-EPI)AfAm 71 (>60 ml/min/1.73 sqM) 11/09/21 16:34 Est GFR (CKD-EPI)NonAf 62 (>60 ml/min/1.73 sqM) 11/09/21 16:34 Glucose 103 mg/dL (74-99) H 11/09/21 16:34 Calcium 9.7 mg/dL (8.4-10.2) 11/09/21 16:34 Urine Color Light Yellow 11/10/21 00:34 Urine Appearance Clear (Clear) 11/10/21 00:34 Urine pH 6.0 (5.0-8.0) 11/10/21 00:34 Ur Specific Toney 1.012 (1.001-1.035) 11/10/21 00:34 Urine Protein Negative (Negative) 11/10/21 00:34 Urine Glucose (UA) Negative (Negative) 11/10/21 00:34 Urine Ketones Negative (Negative) 11/10/21 00:34 Urine Blood Negative (Negative) 11/10/21 00:34 Urine Nitrite Negative (Negative) 11/10/21 00:34 Urine Bilirubin Negative (Negative) 11/10/21 00:34 Urine Urobilinogen <2.0 mg/dL (<2.0) 11/10/21 00:34 Ur Leukocyte Esterase Negative (Negative) 11/10/21 00:34 Urine Opiates Screen Not Detected (NotDetected) 11/10/21 00:34 Ur Oxycodone Screen Not Detected (NotDetected) 11/10/21 00:34 Urine Methadone Screen Not Detected (NotDetected) 11/10/21 00:34 Ur Propoxyphene Screen Not Detected (NotDetected) 11/10/21 00:34 Ur Barbiturates Screen Not Detected (NotDetected) 11/10/21 00:34 U Tricyclic Antidepress Not Detected (NotDetected) 11/10/21 00:34 Ur Phencyclidine Scrn Not Detected (NotDetected) 11/10/21 00:34 Ur Amphetamines Screen Not Detected (NotDetected) 11/10/21 00:34 U Methamphetamines Scrn Not Detected (NotDetected) 11/10/21 00:34 U Benzodiazepines Scrn Not Detected (NotDetected) 11/10/21 00:34 [place] 0.4 mmol/L 11/09/21 16:34 Urine Cocaine Screen Not Detected (NotDetected) 11/10/21 00:34 U Marijuana (THC) Screen Not Detected (NotDetected) 11/10/21 00:34 Coronavirus (PCR) Not Detected (Not Detectd) 11/09/21 21:41 11/14/21 12:30 Initial evaluation: History of present illness: Edu is a 56-year-old female with long history of mental illness Patient states that she's been diagnosed with bipolar disorder Patient states that she was arguing with the devil who was challenging her and that she often acts out when she gets into a situation like that She states that she tore her car because she wanted to prove to the devil who was provoking her She stated that she wanted to make sure that he knows that she was all in' Patient states that she currently lives alone and is on disability She says that she is sees her primary care physician and does not see a psychiatrist She said that she is currently taking lithium carbonate 300 mg 3 times a day she also stated that she takes Lexapro and Wellbutrin She also takes Ambien Klonopin when necessary as well as trazodone for insomnia She does not believe that the able medication may be contributing to her kevin Patient also takes Vasotec for hypertension Past history personal social history: Is significant for bipolar disorder Patient remains somewhat of a vague historian Patient states that she has had previous psychiatric hospitalizations patient however states that she has not had any psychiatric follow-up for a long time and only sees her primary care physician Patient also has issues with the hypertension and chronic psoriasis and morbid obesity Further medical details are as per the live in caregiver Mental status examination reveals a middle-aged female who looks much older for age Patient is somewhat loud and attention seeking Speech is clear Patient exhibits some delusional thinking and loose associations Insight into her problem is poor Thought processes intermittently seem to be racing. Problem-solving skills are impaired Formal and operational judgment are poor Diagnostic impression: Bipolar disorder manic type Rule out schizoaffective disorder Plan: The patient will be asked presently for further evaluation and treatment Therapy will be focused on providing supportive care) and improving her coping abilities with a multimodal treatment We'll avoid drugs that may be contributing to the kevin that includes Wellbutrin and Lexapro and will continue the patient only on lithium carbonate Patient also is currently on Prolixin which will be continued The present of stay would be 5-8 days Donnie Wright M.D. 11/14/21
[2021-11-14] MEDS: LITHIUM CARBONATE 300 MG CAP PO SCH ×2 (12:59→21:10)
[2021-11-14] MEDS: traZODone HCL 100 MG TAB PO SCH (21:10)
[2021-11-15] MEDS: lisinopriL 10 MG TAB PO SCH (09:03)
[2021-11-15] MEDS: ASPIRIN 81 MG PO SCH (09:03)
[2021-11-15] MEDS: LITHIUM CARBONATE 300 MG CAP PO SCH ×3 (09:04→21:49)
[2021-11-15] MEDS ORDERED: fluPHENAZine DECANOATE 25 MG/ML 5ML MDV IM ONE (10:41)
--- NOTE | 2021-11-15 11:20 | P.PN ---
Progress Note - Text Progress Note Date: 11/15/21 Interval History: Patient was seen lying in the quiet room and was just waking up from sleep. Kiera krause was accompanied by security operations manager today for interview with patient due to her impulsivity and agitation previously. Patient was sleeping and was awoken briefly by advertising writer. Patient appeares to be more directable and logical during conversation. She states that she is feeling "ok" today and is denying any anxiety or depression today. She was fairly focused today on discharge. She states that her son had some concerns over her wellbeing and called the police on her to bring her into the hospital. She minimally spoke about Satan today and claims that she is not gettign any messages from him but knows that "he will always be around and trying to mess with people and God". She spoke about agreeing to treatment including Prolixin D today. She claims that she is sleeping better and has been going to group. She is not endoring any paranoia today. At this time patient denies any suicidal or homical ideations, intent or plan. Patient denies any auditory, visual hallucinations. She has been taking her meds. Mental Status Exam: General Appearance: Patient appears to be overweight, various psoriatic plaques over her arms, stated age is alert and laying in bed. Patient appears to have im proving hygiene and grooming. Behavior: Patient is intrusive and lethargic, laying in bed. improving mildly Speech: Patient's speech is rapid and soft today Mood/Affect: Patient reports their mood is "fine", affect is congruent and constricted Suicidality/Homicidality: Patient denies having any homicidal ideation intent or plan. Denies any suicidal ideations intent or plan Perceptions: Patient denies any visual hallucinations and denies any auditory hallucinations Though content/process: more logical, improving mildly. Less delusional today. Memory and concentration: AOX3, grossly intact for the purposes of this session Judgment and insight: Chronically poor, improving midlly Assessment Bipolar disorder, current episode manic with psychotic features Plan: -Patient continues to meet criteria for inpatient psychiatric admission for symptom stabilization and safety. Patient has not signed adult voluntary form and medication consent and was placed in patient's chart. -Medications: decrease Prolixin by mouth 4 mg twice a day for psychosis/mood stabilization. will give prolixin D 37.5 mg IM today and next dose will be due in 2 weeks. Continue with lithium 300 mg three times a day for mood stabilization. Trazodone 100 mg daily at bedtime for sleep. -When necessary Ativan, Benadryl and Haldol for agitation/aggression. -NRT - not needed as patient does not smoke -SW on board for discharge planning. Encouraged the patient to participate in milieu. Patient deferred with her research attorney and is agreeable to continued to [place]. Likely discharge in 1-2 days.
[2021-11-15] MEDS: traZODone HCL 100 MG TAB PO SCH (21:49)
[2021-11-16] MEDS: ASPIRIN 81 MG PO SCH (09:37)
[2021-11-16] MEDS: LITHIUM CARBONATE 300 MG CAP PO SCH ×3 (09:38→21:48)
[2021-11-16] MEDS: lisinopriL 10 MG TAB PO SCH (09:43)
--- NOTE | 2021-11-16 10:15 | P.PN ---
Progress Note - Text Progress Note Date: 11/16/21 Interval History: Patient was seen wandering the hallways today and was insistent on speaking with freelance writer. She did not want to speak in the office and wanted to speak to the freelance writer in the hallway. She is not endorsing any overnight complaints and states that she is sleeping fairly. She claims that she is feeling somewhat tired during the day. She claims that she is agreeable to continue on with her medications and treatment. She was fairly focused today on discharge. She claims that she tolerated the Prolixin D injection yesterday well. She states that she is feeling less irritable and was not endorsing any delusions today. She claims that she is sleeping better and has been going to group. At this time patient denies any suicidal or homical ideations, intent or plan. Patient denies any auditory, visual hallucinations. She has been taking her meds. Mental Status Exam: General Appearance: Patient appears to be overweight, various psoriatic plaques over her arms, stated age is alert and laying in bed. Patient appears to have improving hygiene and grooming. Behavior: Patient is not agitated, cooperative, improving mildly Speech: Patient's speech is fluent Mood/Affect: Patient reports their mood is "ok", affect is congruent and constricted Suicidality/Homicidality: Patient denies having any homicidal ideation intent or plan. Denies any suicidal ideations intent or plan Perceptions: Patient denies any visual hallucinations and denies any auditory hallucinations Though content/process: more logical, improving mildly. not endorsing delusions today Memory and concentration: AOX3, grossly intact for the purposes of this session Judgment and insight: Chronically poor, improving midlly Assessment Bipolar disorder, current episode manic with psychotic features Plan: -Patient continues to meet criteria for inpatient psychiatric admission for symptom stabilization and safety. Patient has not signed adult voluntary form and medication consent and was placed in patient's chart. -Medications: decrease Prolixin by mouth 4 mg qhs for psychosis/mood stabilization, this can be given for 4 more days after discharge then discontinued. she received her prolixin D 37.5 mg IM on 11/15 and next dose will be due on 11/29. Continue with lithium 300 mg three times a day for mood stabilization. Trazodone 100 mg daily at bedtime for sleep. -When necessary Ativan, Benadryl and Haldol for agitation/aggression -NRT - not needed as patient does not smoke -SW on board for discharge planning. Encouraged the patient to participate in milieu. Patient deferred with her divorce attorney and is agreeable to continued to [place]. Likely discharge tomorrow back home.
[2021-11-16] MEDS: traZODone HCL 100 MG TAB PO SCH (21:48)
[2021-11-17 06:56] VITALS: RESP 16; TEMP 97.7
[2021-11-17] MEDS: LITHIUM CARBONATE 300 MG CAP PO SCH (09:26)
[2021-11-17] MEDS: ASPIRIN 81 MG PO SCH (09:26)
[2021-11-17] MEDS: lisinopriL 10 MG TAB PO SCH (09:26)
[2021-11-17 09:29] VITALS: BP 103/68; PULSE 84
--- NOTE | 2021-11-17 17:45 | DS ---
DISCHARGE SUMMARY DATE OF SERVICE: 11/17/2021. DATE OF ADMISSION: 11/10/2021. DATE OF DISCHARGE: 11/17/2021 ADMISSION AND DISCHARGE DIAGNOSIS: Bipolar disorder, current episode manic with psychotic features. HISTORY OF PRESENTING ILLNESS: The patient is a 56-year-old female. She lives alone. She has one son. She presented to the hospital on petition by her son. She had been sleeping poorly. She had baptism preoccupation, speaking about Satan. She was delusional and aggressive. She has had multiple psychiatric hospitalizations. When she presented to the ED, it was noted that she was acting bizarre and aggressive. Urine drug screen was negative. Home medications included lithium carbonate 300 mg 3 times a day, Prolixin 4 mg a day and trazodone 100 mg a day as her psychotropic medications. MENTAL STATUS EXAM: The patient was alert. She was noted to be intrusive. Her speech was rapid and loud. Affect was labile and intense. She denied any thoughts of harm. Her thoughts were tangential, illogical and with loose association and flight of ideas. She was oriented and alert. COURSE OF HOSPITALIZATION: Patient was admitted for comprehensive medical, psychiatric and psychosocial evaluation. We engaged the patient in individual and group therapeutic activities. On admission she was started on Abilify 7.5 mg a day and continued on lithium 450 mg twice a day. Patient on admission had significant behavior difficulties with episodes of getting agitated and aggressive. She required restraints and seclusion along with p.r.n. medications. She declined to take oral medications. She showed impulsivity and poor judgment. She made bizarre statements and had baptism preoccupation. The patient was willing to take Prolixin as opposed to the Abilify that had initially been ordered; thus the Abilify was discontinued and she was started on Prolixin 5 mg twice a day. As her hospitalization progressed, she continued to show irritability and periods where she would get angry and use difficult language. It is noted that she had a lithium level on admission of 0.4. Other lab work was unremarkable. Patient continued to have some difficulties in her behavior. She would be impulsive and have irritability. Overall she was more engaged and directable. Her thoughts gradually cleared from the delusional thinking that had been prominent early on in her hospital stay. She established a stable sleep pattern at night. Toward the end of her hospitalization she was able to engage appropriately in conversations. She was agreeable to initiate Prolixin Decanoate and on 11/15 received Prolixin Decanoate 37.5 mg IM. Her oral dose was reduced to 4 mg at bedtime. The plan was for her to continue on Prolixin Decanoate on an [id number] basis. The patient was able to engage appropriately in discharge planning. CONDITION AT DISCHARGE: Patient was stable. Her mood was improved. Her thoughts were clear and she was not showing signs of psychotic thinking. She tolerated her psychotropic medications. She made no indication of thoughts of harm. RECOMMENDATIONS AND FOLLOWUP: Patient is discharged to home. Discharge medications include Prolixin 4 mg at bedtime, lithium carbonate 300 mg 3 times a day or alternatively 900 mg at bedtime, and trazodone 100 mg at bedtime. She will be due for a lithium level in the next week. She has a followup on 11/22/[address] [facility]. MMTIANA / GRUPO: [id number] /
== END 2021-11-17 16:00 | disposition home or self-care (01) | DRG 885 ==
LOC: EC 15:21 → 3MHU 11-10 00:47
PROVIDERS: ADMIT Psychiatry & Neurology Psychiatry; ATTEND Psychiatry & Neurology Psychiatry
DX: F31.2 Bipolar disorder, current episode manic severe with psychotic features (principal); F23 Brief psychotic disorder; E66.01 Morbid (severe) obesity due to excess calories; G47.00 Insomnia, unspecified; I10 Essential (primary) hypertension; L40.9 Psoriasis, unspecified; Z78.1 Physical restraint status; Z79.82 Long term (current) use of aspirin; Z79.899 Other long term (current) drug therapy; Z20.822 Contact with and (suspected) exposure to COVID-19; Z68.38 Body mass index [BMI] 38.0-38.9, adult
CPT/HCPCS: 36415; 70450; 80048; 80178; 80306; 81003; 82075; 85025; 87635; 96372; 99285

== ENCOUNTER 2022-01-10 09:50 | Inpatient (IN) | payer MEDICARE ==
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
[2022-01-10] MEDS ORDERED: LORazepam 1 MG TAB PO STA (13:42)
[2022-01-10] MEDS ORDERED: MAGNESIUM HYDROXIDE 2,400 MG/10 ML CUP PO PRN (15:20)
[2022-01-10] MEDS ORDERED: MAG HYDROX/AL HYDROX/SIMETH 30 ML CUP PO PRN (15:20)
[2022-01-10] MEDS ORDERED: ACETAMINOPHEN TAB 325 MG TAB PO PRN (15:20)
[2022-01-10] MEDS ORDERED: flUPHENAZine 2.5 MG/ML (MDV) 10 ML VIAL IM PRN (15:23)
[2022-01-10] MEDS ORDERED: LORazepam 2 MG/ML INJ IM PRN (15:23)
[2022-01-10] MEDS ORDERED: QUEtiapine 100 MG TAB PO PRN (15:24)
--- NOTE | 2022-01-11 02:57 | P.PN ---
Progress Note - Text Progress Note Date: 01/11/22 Patient actively psychotic and inappropriate for evaluation as per [facility] RN.
--- NOTE | 2022-01-11 11:00 | P.HPIM ---
History of Present Illness H&P Date: 01/11/22 56-year-old female admitted to the hospital with acute psychosis Currently patient doesn't have any significant complaints not complaining of any chest pain or shortness of breath Constitutional: No acute distress, conversant, pleasant Eyes: Anicteric sclerae, moist conjunctiva, no lid-lag PERRLA ENMT: NC/AT Oropharynx clear, no erythema, exudates Neck: Supple, FROM, no masses, or JVD No carotid bruits No thyromegaly Lungs: Clear to auscultation Clear to percussion Normal respiratory effort, no accessory muscle use Cardiovascular: Heart regular in rate and rhythm, No murmurs, gallops, or rubs No peripheral edema Abdominal: Soft Nontender, no guarding, rebound or rigidity Abdomen moving with respiration Normoactive bowel sounds No hepatomegaly, No splenomegaly No palpable mass No abdominal wall hernia noted Skin: Normal temperature, tone, texture, turgor No induration No subcutaneous nodules No rash, lesions No ulcers Extremities: No digital cyanosis No clubbing Pedal pulses intact and symmetrical Radial pulses intact and symmetrical Normal gait and station No calf tenderness Psychiatric:Alert and oriented to person, place and time Appropriate affect Intact judgement Neuro: Muscles Strength 5/5 in all 4 extremities Sensation to light touch grossly present throughout Cranial nerves II-XII grossly intact No focal sensory deficits Review of systems and systems has been reviewed all negative and positive findings as per history of present illness Diagnosis and assessment and plan Acute psychosis Hypertension stable Continue management as per psychiatry Past Medical History Past Medical History: Hypertension History of Any Multi-Drug Resistant Organisms: None Reported Past Surgical History: No Surgical Hx Reported Past Anesthesia/Blood Transfusion Reactions: No Reported Reaction Past Psychological History: Bipolar Smoking Status: Never smoker Past Alcohol Use History: None Reported Past Drug Use History: None Reported Medications and Allergies Home Medications Medication Instructions Recorded Confirmed Type Aspirin EC [Ecotrin Low Dose] 81 mg PO DAILY 06/30/21 01/10/22 History Enalapril [Vasotec] 5 mg PO DIRECTED 06/30/21 01/10/22 History Escitalopram [Lexapro] 20 mg PO DIRECTED 01/10/22 01/10/22 History [place] Carbonate 300 mg PO DIRECTED 01/10/22 01/10/22 History buPROPion HCL [Wellbutrin XL] 300 mg PO DIRECTED 01/10/22 01/10/22 History clonazePAM [KlonoPIN] 1 mg PO DIRECTED 01/10/22 01/10/22 History fluPHENAZine [Prolixin] 4 mg PO DIRECTED 01/10/22 01/10/22 History traZODone HCL [Desyrel] 100 mg PO DIRECTED 01/10/22 01/10/22 History Allergies Allergy/AdvReac Type Severity Reaction Status Date / Time risperidone Allergy Unknown, Verified 01/10/22 11:34 per pcp Physical Exam Vitals: Vital Signs Temp BP Pulse Ox 01/11/22 07:17 98.1 F 143/80 94 L
--- NOTE | 2022-01-11 14:56 | P.HP ---
Psychiatric H&P - . H&P Date: 01/11/22 History & Physical: Allergies Allergy/AdvReac Type Severity Reaction Status Date / Time risperidone Allergy Unknown, Verified 01/10/22 11:34 per pcp Vital Signs Temp 98.1 F 01/11/22 07:17 Pulse 76 01/10/22 10:12 Resp 18 01/10/22 10:12 BP 143/80 01/11/22 07:17 Pulse Ox 94 L 01/11/22 07:17 Intake & Output 01/10/22 01/11/22 01/11/22 18:59 06:59 18:59 Weight 113.398 kg Laboratory Last Values Coronavirus (PCR) Not Detected (Not Detectd) 01/10/22 12:28 01/11/22 11:49 IDENTIFYING DATA: Patient is a 56-year-old female who currently lives alone in the house has one son. She has a history of bipolar disorder HPI: Patient presented to the hospital yesterday complaining of thought insertion was acting bizarre and delusional. Patient apparently was noncompliant with her medications when asked in the ER. Patient was recently discharged from the mental health unit in October 2021 and was tried on Abilify at that time her hospitalization however was transitioned onto Prolixin Decano[place] 37.5 mg IM in the last dose was given on 11/15/21. Patient was also on lithium and trazodone at that time. Patient was meant to follow-up with [facility] however did not show for her appointment. Patient was seen today wandering the hallways and agreeable to speak a gag writer. She appeared to be fairly restless and anxious during conversation. She states that she is doing "not good at all" and claims that she came into the hospital to seek treatment. She states that she has been feeling that her paranoia has been "out of control". She claims that she cannot think straight and was restless. She claims that she came in by herself. She still living alone in an apartment. She claims that she has been off her medication for several weeks now claims that she "ran out". She states that her sleep and appetite have been fair. She was alert and oriented 3. Patient denies any suicidal or homicidal ideations intent or plan. At this time patient denies any auditory or visual hallucinations. She denies any recreational drug use. PAST PSYCHIATRIC HISTORY: Patient states that bipolar disorder since the age of [age] years old. She was previously on PRolixin, abilify and lithium along with trazodone. She claims that she has been to several psychiatric hospitals in the past and claims that her last admission was in 10/2021 in the [facility]. Patient denies any psychiatric outpatient follow-up and did not show for her [facility] appointment. She states that she does have a history of self-injurious behaviors where she "knawed on my arm" PMH:psoriasis, htn ALLERGIES: as per EMR CHEMICAL DEPENDENCY HISTORY: as per HPI FAMILY PSYCHIATRIC/SUBSTANCE USE HISTORY: States that her mother and grandmother had bipolar disorder. SOCIAL HISTORY: Patient was born and raised in [facility]. She states that she completed up to the 10th grade in school. She claims that she has been in detention in the past for "destruction of property". She has 1 son and [place] in a house. MENTAL STATUS EXAM: General Appearance: Patient appears to be overweight, various psoriatic plaques over her arms, stated age is alert, restless and anxious. Patient appears to have poor hygiene and grooming. Behavior: Patient is restless. Attempts to cooperate. Speech: Patient's speech is soft tone. Mood/Affect: Patient reports their mood is "not good", affect is congruent and l abile Suicidality/Homicidality: Patient denies having any homicidal ideation intent or plan. Denies any suicidal ideations intent or plan Perceptions: Patient denies any visual hallucinations and denies any auditory hallucinations Though content/process: Rambles, tangential, depressive content. Bizarre. Memory and concentration: AOX3, grossly intact for the purposes of this session. Can spell "WORLD" backwards Judgment and insight: poor chronically STRENGTHS/WEAKNESSES: strength is that patient is resilient. Weakness is that patient has poor judgment and is impulsive INTELLECT: average IMPRESSIONS: Bipolar disorder, current episode manic with psychotic features PLAN: -Patient is admitted under involuntary status to [facility] for stabilization of psychiatric symptoms and safety. Patient has not signed adult voluntary form and medication consent and is placed in patient's chart. We will file demand for hearing today as patient did not follow-up at [facility] for her injection. -Medications : Prolixin by mouth 4 mg twice a day for psychosis/mood stabilization. [place] 300 mg 3 times a day for mood stabilization. We will attempt to transition patient onto long-acting injection prior to discharge. Trazodone 50 mg daily at bedtime for sleep. -Ativan and Haldol PRN for agitation/aggression -Patient was informed of the risks, benefits and side effects of the medication -Internal Medicine consult to perform medical evaluation and physical. -NRT -not needed as patient does not smoke -SW on board for discharge planning. Encourage patient to participate in groups to work on coping skills. Will await demand for hearing court date. 01/11/22 14:51
[2022-01-11] MEDS: LITHIUM CARBONATE 300 MG CAP PO SCH ×2 (16:23→21:15)
[2022-01-11] MEDS ORDERED: traZODone HCL 50 MG TAB PO SCH (21:00)
[2022-01-12] MEDS: LITHIUM CARBONATE 300 MG CAP PO SCH ×2 (08:53→16:10)
--- NOTE | 2022-01-12 11:47 | P.PN ---
Progress Note - Text Progress Note Date: 01/12/22 Interval History: Patient was seen lying in her bed this morning and was directable and agreeable to speak with field underwriter. She appeared to be more directable today and more appropriate. She continues to appear to be an mild distress and was rubbing her head and forehead. She states that she is feeling a bit better in terms of her depression and anxiety. She claims that her thoughts are "a bit clearer". She claims that she feels a little bit less threatened by "the lord" and does not feel as attacked as yesterday. She claims that she slept better last night and was requesting to have her trazodone increased once again. She states that she has a fair appetite. She claims that she has not been going to groups. She continues to isolate mainly in her room has been taking her medications. She appears to have a mild improvement in her insight. At this time patient denies any suicidal or homical ideations, intent or plan. Patient denies any auditory, visual hallucinations and denies any paranoia or delusions. Patient denies any side effects from the medications and has been compliant with meds. Mental Status Exam: General Appearance: Patient appears to be overweight, various psoriatic plaques over her arms, stated age is alert, improving mildly. Patient appears to have poor hygiene and grooming. Behavior: Patient is not agitated today. Attempts to cooperate. Speech: Patient's speech is soft tone. [place] Mood/Affect: Patient reports their mood is "a bit better", affect is congruent and labile, improving mildly Suicidality/Homicidality: Patient denies having any homicidal ideation intent or plan. Denies any suicidal ideations intent or plan Perceptions: Patient denies any visual hallucinations and denies any auditory hallucinations Though content/process: Rambles, tangential, depressive content. Bizarre. Memory and concentration: AOX3, grossly intact for the purposes of this session Judgment and insight: poor chronically IMPRESSIONS: Bipolar disorder, current episode manic with psychotic features Plan: -Patient continues to meet criteria for inpatient psychiatric admission for symptom stabilization and safety. Patient has [not] signed [medication consent] and was placed in patient's chart. -Medications: Prolixin by mouth 4 mg twice a day for psychosis/mood stabilization. will give Prolixin D 37.5 mg IM tomorrow and next dose will be due in 2 weeks on 01/27. [place] 300 mg 3 times a day for mood stabilization. Increased Trazodone 100 mg daily at bedtime for sleep. -When necessary Ativan and Haldol for agitation/aggression. -NRT -not needed as patient does not smoke. -SW on board for discharge planning. Encouraged the patient to participate in milieu. Awaiting demand for hearing court date. likely discharge in 1-2 days back home with [facility] f/u
[2022-01-12] MEDS: lisinopriL 10 MG TAB PO SCH (13:35)
[2022-01-12] MEDS: ASPIRIN 81 MG PO SCH (13:35)
[2022-01-13] MEDS: LITHIUM CARBONATE 300 MG CAP PO SCH ×4 (07:27→21:17)
[2022-01-13] MEDS: traZODone HCL 100 MG TAB PO SCH ×2 (07:27→21:17)
[2022-01-13] MEDS: lisinopriL 10 MG TAB PO SCH (09:07)
[2022-01-13] MEDS: ASPIRIN 81 MG PO SCH (09:08)
[2022-01-13] MEDS ORDERED: fluPHENAZine DECANOATE 25 MG/ML 5ML MDV IM ONE (12:00)
--- NOTE | 2022-01-13 16:41 | P.PN ---
Progress Note - Text Progress note She was seen today for review of her progress. she has improved in terms of intensity of her delusional thoughts; she talked about how role as allied With Satan against Michael. However, She was less fearful and less guarded in her delusion. She was prepared to continue to follow through with her medication. She was started on PRolixin depot and continued to be on trazodone 50 mg po whs and low dosage of olanzapine 12. 5 mg po. She was displaying motor restlessness; akathisia but was not over-concerned over her dyskinetic movement. AIMS to be followed up. later. MSE: slightly agitated at times. no threatening behavior. full range of affect. Guarded and irritable at times. congruent with thought content. No hallucin ations. Deluson of identify was intermittent no suicidal or homicidal ideation. Cognition oriented. No memory deficits complaint. Insight and judgment has improved. diagnosis: schizoaffective disorder, bipolar subtype Management : inpatient stabilization required. Engage PT with psychoeducational module and unit groups. Monitor side effects of Rx. follow up and discharge next week
[2022-01-14] MEDS: ASPIRIN 81 MG PO SCH (09:03)
[2022-01-14] MEDS: lisinopriL 10 MG TAB PO SCH (09:03)
[2022-01-14] MEDS: LITHIUM CARBONATE 300 MG CAP PO SCH ×3 (09:03→21:13)
[2022-01-14] MEDS: traZODone HCL 100 MG TAB PO SCH (21:13)
[2022-01-15] MEDS: ARIPiprazole 5 MG TAB PO SCH (09:13)
[2022-01-15] MEDS: ASPIRIN 81 MG PO SCH (09:13)
[2022-01-15] MEDS: LITHIUM CARBONATE 300 MG CAP PO SCH ×3 (09:13→21:00)
[2022-01-15] MEDS: lisinopriL 10 MG TAB PO SCH (09:14)
[2022-01-15] MEDS: traZODone HCL 100 MG TAB PO SCH (21:00)
[2022-01-16] MEDS: ARIPiprazole 5 MG TAB PO SCH (08:35)
[2022-01-16] MEDS: LITHIUM CARBONATE 300 MG CAP PO SCH ×3 (08:35→20:36)
[2022-01-16] MEDS: lisinopriL 10 MG TAB PO SCH (08:35)
[2022-01-16] MEDS: ASPIRIN 81 MG PO SCH (08:35)
--- NOTE | 2022-01-16 19:04 | P.PN ---
Subjective Progress Note Date: 01/16/22 Principal diagnosis: Progress note She was seen briefly today mood much improved and more relaxed. She was highly compliant with the medication. She no longer had irritability and changed her delusional thinking of viewing Satan as evil. Diag; schizoaffective disorder responding to Rx. Plan She continue to fulfil the inpatient criteria. Early discharge if improvement persists. Rx to be further adjusted Objective - Vital Signs Vital signs: Vital Signs Temp 97.5 F L 01/16/22 06:58 Pulse 65 01/16/22 06:58 Resp 16 01/16/22 06:58 BP 130/73 01/16/22 06:58 Pulse Ox 98 01/16/22 06:58 Intake & Output 01/16/22 01/16/22 01/17/22 06:59 18:59 06:59 Weight 99.8 kg
[2022-01-16] MEDS: traZODone HCL 100 MG TAB PO SCH (20:36)
[2022-01-17] MEDS: ARIPiprazole 5 MG TAB PO SCH (09:37)
[2022-01-17] MEDS: ASPIRIN 81 MG PO SCH (09:37)
[2022-01-17] MEDS: lisinopriL 10 MG TAB PO SCH (09:37)
[2022-01-17] MEDS: LITHIUM CARBONATE 300 MG CAP PO SCH ×2 (09:37→16:54)
--- NOTE | 2022-01-17 18:00 | P.PN ---
Subjective Progress Note Date: 01/17/22 Principal diagnosis: Progress note She was seen today in her room She made atempt to connect with her son and complained of boredom in the inpatient unit. She preferred to be sleeping for the whole day. She did not elaborate on Satan figure and seemed to be relieved of any Bad th oughts. Negative symptoms persisted: alogia apathy. No active hallucinations or delusions. NO EPS after she was given Depot antipsychotic Rx. Dignosis Schizoaffective Disorder, Some improvement Management : Early discharge. She did not have imminent thoughts of self harm or harm to others. reinforce community living skills COnnect with family Objective - Vital Signs Vital signs: Vital Signs Temp 97.6 F 01/17/22 06:36 Pulse 98 01/17/22 09:38 Resp 20 01/17/22 09:38 BP 125/79 01/17/22 09:38 Pulse Ox 98 01/17/22 06:36 Intake & Output 01/16/22 01/17/22 01/17/22 18:59 06:59 18:59 Weight 99.8 kg
[2022-01-18] MEDS: traZODone HCL 100 MG TAB PO SCH ×2 (01:18→20:12)
[2022-01-18] MEDS: LITHIUM CARBONATE 300 MG CAP PO SCH ×4 (01:19→20:12)
[2022-01-18] MEDS: lisinopriL 10 MG TAB PO SCH (08:47)
[2022-01-18] MEDS: ASPIRIN 81 MG PO SCH (08:47)
[2022-01-18] MEDS: ARIPiprazole 5 MG TAB PO SCH (09:07)
--- NOTE | 2022-01-18 16:31 | P.PN ---
Subjective Progress Note Date: 01/18/22 Principal diagnosis: progress note She was seen today . she wanted to be discharged early and talked about her son's social support. She was at times had twitching mvoements laura to Akathisia. related to Prolixin; however, she was prepared to continue with her current Rx;. She indicated she would have her court tele-appearance after which her discharge date would be finalized. Her delusion of being controlled by Satan and her self-identify have largely resolved. SHe becaome more engaging with the clinician : No hallucinations. No paranoid delusons. Her self-care has somewhat improved. Diagnosis; Schizoaffective disorder , residual negative symptoms Management : early discharge this week [employer] follow up Connect with her family Objective - Vital Signs Vital signs: Vital Signs Temp 98.6 F 01/18/22 06:44 Pulse 73 01/18/22 06:44 Resp 16 01/18/22 06:44 BP 134/74 01/18/22 06:44 Pulse Ox 98 01/17/22 06:36
[2022-01-19 00:52] VITALS: RESP 14; TEMP 96.3
[2022-01-19] MEDS: LORazepam 1 MG TAB PO PRN ×2 (04:05→22:33)
[2022-01-19 04:19] VITALS: PULSE 86
[2022-01-19] MEDS: ASPIRIN 81 MG PO SCH (08:39)
[2022-01-19] MEDS: ARIPiprazole 5 MG TAB PO SCH (08:39)
[2022-01-19] MEDS: LITHIUM CARBONATE 300 MG CAP PO SCH (08:39)
[2022-01-19] MEDS: lisinopriL 10 MG TAB PO SCH (08:39)
--- NOTE | 2022-01-19 11:15 | P.PN ---
Progress Note - Text Progress Note Date: 01/19/22 Interval History: Patient was seen lying in her bed this morning and was directable and agreeable to speak with sign writer hand in the office. She appeared to be more directable today and more appropriate with sign writer hand today. She claims that she has been taking her medications as prescribed. She claims that she does not want to take the Abilify however she claimed that she had a poor reaction to it in the past. She states that she will be willing to consent to the order and had questions about her court date which was supposed to be today. She is denying any depression today or any anxiety. She was not endorsing any delusions today. She claims that she slept better last night however did end up taking a Ativan. She was agreeable to her trazodone increased once again. She states that she has a fair appetite. She claims that she has been going to some groups. she appears to have a mild improvement in her insight. At this time patient denies any suicidal or homical ideations, intent or plan. Patient denies any auditory, visual hallucinations and denies any paranoia or delusions. Patient denies any side effects from the medications and has been compliant with meds. Mental Status Exam: General Appearance: Patient appears to be overweight, various psoriatic plaques over her arms, stated age is alert, improving mildly. Patient appears to have improving hygiene and grooming. Behavior: Patient is not agitated today. Attempts to cooperate. Speech: Patient's speech is soft tone. [place] Mood/Affect: Patient reports their mood is "good", affect is congruent, improving mildly Suicidality/Homicidality: Patient denies having any homicidal ideation intent or plan. Denies any suicidal ideations intent or plan Perceptions: Patient denies any visual hallucinations and denies any auditory hallucinations Though content/process: Rambles at times. More logical and goal oriented. Not endorsing any paranoid delusions. Memory and concentration: AOX3, grossly intact for the purposes of this session Judgment and insight: poor chronically, improving IMPRESSIONS: Bipolar disorder, current episode manic with psychotic features Plan: -Patient continues to meet criteria for inpatient psychiatric admission for symptom stabilization and safety. Patient has [not] signed [medication consent] and was placed in patient's chart. -Medications: Received Prolixin D 37.5 mg IM on 01/13 and will be due in 2 weeks on 01/27. Changed [place] 450 mg two times a day for mood stabilization. In creased Trazodone 150 mg daily at bedtime for sleep. Discontinued Abilify. -lithium level tomorrow morning. -When necessary Ativan and Haldol for agitation/aggression. -NRT -not needed as patient does not smoke. - on board for discharge planning. Encouraged the patient to participate in milieu. Awaiting demand for hearing, court was supposed to be today however will need to wait on new court hearing date. Patient likely to sign waive and stip therefore will contact inside barrel polisher to ask if this can be done. likely discharge tomorrow home with [facility] f/u
[2022-01-19] MEDS ORDERED: traZODone HCL 50 MG TAB PO SCH (21:00)
[2022-01-19] MEDS: LITHIUM CARBONATE 150 MG CAP PO SCH (21:34)
[2022-01-19 22:33] VITALS: BP 104/66
[2022-01-20] MEDS: ASPIRIN 81 MG PO SCH (08:55)
[2022-01-20] MEDS: lisinopriL 10 MG TAB PO SCH (08:55)
[2022-01-20] MEDS: LITHIUM CARBONATE 150 MG CAP PO SCH (08:55)
--- NOTE | 2022-01-20 11:14 | P.DS ---
Providers Date of admission: 01/10/22 14:40 Expected date of discharge: 01/20/22 Attending physician: Néstor Reid MD Consults: 01/10/22 15:20 Consult Physician Routine Consulting Provider: Joe Luque Consult Reason/Comments: H&P and medical Do you want consulting provider notified?: Yes Primary care physician: Bobby Fish MD - Discharge Diagnosis(es) (1) Bipolar disorder, current episode manic severe with psychotic features Current Visit: Yes Status: Acute Priority: High Hospital Course: Admission HPI: Admission note was completed by manual writer "Patient is a 56-year-old female who currently lives alone in the house has one son. She has a history of bipolar disorder. Patient presented to the hospital yesterday complaining of thought insertion was acting bizarre and delusional. Patient apparently was noncompliant with her medications when asked in the ER. Patient was recently discharged from the mental health unit in October 2021 and was tried on Abilify at that time her hospitalization however was transitioned onto Prolixin Dec anoate 37.5 mg IM in the last dose was given on 11/15/21. Patient was also on lithium and trazodone at that time. Patient was meant to follow-up with [facility] however did not show for her appointment. Patient was seen today wandering the hallways and agreeable to speak a manual writer. She appeared to be fairly restless and anxious during conversation. She states that she is doing "not good at all" and claims that she came into the hospital to seek treatment. She states that she has been feeling that her paranoia has been "out of control". She claims that she cannot think straight and was restless. She claims that she came in by herself. She still living alone in an apartment. She claims that she has been off her medication for several weeks now claims that she "ran out". She states that her sleep and appetite have been fair. She was alert and oriented 3. Patient denies any suicidal or homicidal ideations intent or plan. At this time patient denies any auditory or visual hallucinations. She denies any recreational drug use." Hospital course: Upon admission to the unit patient was admitted on a deferral involuntarily. The decision was made to file for a demand for hearing. Patient will be meeting with her deputy attorney general today on day of discharge and plans to sign a waive and stip and agree to the court order. Patient got along well with other patients on the unit and followed unit protocol. Patient was compliant with the medications and denied any side effects throughout hospital course. Patient was started on Prolixin and transition back onto Prolixin D 37.5 mg IM, given a dose on 01/13 and will be due every 2 weeks with next dose due on 01/27. Patient was also restarted back on trazodone and increased to a dose of 150 mg daily at bedtime for sleep/mood and also lithium 450 mg twice a day for mood stabilization. Patient had a lithium level drawn on morning of discharge which was 1.0. Patient spoke of her stressors and engaged in therapy both group and individual. Shamar umaña was also seen by medical team for history and physical exam. Throughout the course of the hospitalization patient gradually improved with regards to mood, anxiety, psychosis, sleep and returned back to their baseline level of functioning. On the day of discharge patient denied any suicidal or homicidal ideations intent or plan denied any auditory or visual hallucinations. Patient endorsed wanting to live for her future and health. The patient denied any access to guns or weapons. Patient denied any paranoia and did not endorse any delusions. Patient does not have a significant history of substance abuse however was counseled on abstaining from all substances including alcohol and marijuana. Patient was also counseled on the medications and need for regular compliance and was encouraged to follow-up with their outpatient appointment for mental health and also for primary care. Prior to discharge a family meeting will be arranged by social scientist to answer any questions and ensure safety upon discharge. Mental status exam: General Appearance: Patient appears to be overweight, stated age is alert, pleasant, and cooperative. Patient is in no acute distress and has improved hygiene and grooming Behavior: Patient is calmly seated without any agitated behavior. Speech: Patient's speech is fluent and nonpressured. Mood/Affect: Patient reports their mood is "fine", affect is congruent and euthymic. Suicidality/Homicidality: Patient denies having any suicidal or homicidal ideation intent or plan. Perceptions: Patient denies any auditory or visual hallucinations. Though content/process: There is no evidence of any delusional thought content and thought process is linear and goal-directed. Memory and concentration: AOX3, grossly intact for the purposes of this session. Can spell "WORLD" backwards correctly. Judgment and insight: chronically poor, however has improved with guarded prognosis Impression: Bipolar disorder severe kevin with psychotic features Plan: -Continue with discharge today as patient has improved and stabilized psychiatrically and is not currently an imminent threat to herself and/or others. Patient will remain at chronically elevated risk for harm to self and/or others due to her impulsivity and chronically poor judgment and insight. -Continue medications: Prolixin D 37.5 mg IM every 2 weeks, last dose given on 01/13 and will be due next on 01/27. Trazodone 150 mg daily at bedtime for sleep/mood and lithium 450 mg twice a day for mood stabilization. -Patient was counseled on the need for medication compliance and appropriate follow-up at mental health and also primary care for medical issues. Patient verbalized understanding and agreed. -Social work to arrange for and conduct family meeting to ensure safety upon discharge and answer any questions/concerns. Social work also to arrange for patients follow up appointments with [facility] for psychiatric care along with follow up with primary care provider. -Patient counseled on abstaining from recreational drugs and marijuana and alcohol. Was informed/educated on the adverse effects on their physical and mental health. Patient verbally agreed and understood. -Patient was instructed to return to the hospital or seek immediate medical care if their psychiatric or medical symptoms do worsen or reoccur. -patient will be meeting with her deputy attorney general today and will be signing the waive and stip and agreeing to the court order for treatment. Allergies Allergy/AdvReac Type Severity Reaction Status Date / Time risperidone Allergy Unknown, Verified 01/10/22 11:34 per pcp Laboratory Results [place] 1.0 mmol/L 01/20/22 07:22 Coronavirus (PCR) Not Detected (Not Detectd) 01/10/22 12:28 Vital Signs Temp 96.3 F L 01/19/22 00:15 Pulse 86 01/19/22 04:18 Resp 14 01/19/22 04:18 BP 104/66 01/19/22 22:32 Pulse Ox 98 01/17/22 06:36 Patient Condition at Discharge: Stable Plan - Discharge Summary New Discharge Prescriptions: New fluPHENAZine decanoate [Prolixin Decanoate] 37.5 mg IM [id number] #1 each traZODone HCL 150 mg PO HS 30 Days tablet lisinopriL [Zestril] 10 mg PO DAILY 30 Days tab [place] Carbonate 450 mg PO BID 30 Days cap Continue Aspirin EC [Ecotrin Low Dose] 81 mg PO DAILY 30 Days tab Discontinued Enalapril [Vasotec] 5 mg PO DIRECTED buPROPion HCL [Wellbutrin XL] 300 mg PO DIRECTED Escitalopram [Lexapro] 20 mg PO DIRECTED traZODone HCL [Desyrel] 100 mg PO DIRECTED fluPHENAZine [Prolixin] 4 mg PO DIRECTED [place] Carbonate 300 mg PO DIRECTED clonazePAM [KlonoPIN] 1 mg PO DIRECTED Discharge Medication List Aspirin EC [Ecotrin Low Dose] 81 mg PO DAILY 30 Days tab 01/20/22 [Rx] [place] Carbonate 450 mg PO BID 30 Days cap 01/20/22 [Rx] fluPHENAZine decanoate [Prolixin Decanoate] 37.5 mg IM [id number] #1 each 01/20/22 [Rx] lisinopriL [Zestril] 10 mg PO DAILY 30 Days tab 01/20/22 [Rx] traZODone HCL 150 mg PO HS 30 Days tablet 01/20/22 [Rx] Follow up Appointment(s)/Referral(s): Bobby Fish MD [Primary Care Provider] - 1-2 days Activity/Diet/Wound Care/Special Instructions: Activity and diet as tolerated. Avoid the use of street drugs and alcohol. Take all medications as prescribed. When you are in need of refills on your medications please contact your medical provider and/or outpatient psychiatrist to have this done. Please go to scheduled outpatient appointment for aftercare treatment. If symptoms return or become worse, call the crisis line at and/or go to the nearest emergency room for evaluation Discharge Disposition: HOME SELF-CARE
[2022-01-20 13:51] VITALS: BMI 35.5
== END 2022-01-20 19:40 | disposition home or self-care (01) | DRG 885 ==
LOC: EC 09:50 → 3MHU 14:40
PROVIDERS: ADMIT Psychiatry & Neurology Psychiatry; ATTEND Psychiatry & Neurology Psychiatry
DX: F31.2 Bipolar disorder, current episode manic severe with psychotic features (principal); Z20.822 Contact with and (suspected) exposure to COVID-19; I10 Essential (primary) hypertension; Z91.128 Patient's intentional underdosing of medication regimen for other reason; T50.906A Underdosing of unspecified drugs, medicaments and biological substances, initial encounter; L40.9 Psoriasis, unspecified; F41.9 Anxiety disorder, unspecified; E66.3 Overweight; Z68.35 Body mass index [BMI] 35.0-35.9, adult; Z79.82 Long term (current) use of aspirin; Z79.899 Other long term (current) drug therapy; Z60.2 Problems related to living alone; Z91.52 Personal history of nonsuicidal self-harm; Z71.3 Dietary counseling and surveillance; Z71.41 Alcohol abuse counseling and surveillance of alcoholic; Z71.51 Drug abuse counseling and surveillance of drug abuser; Z88.8 Allergy status to other drugs, medicaments and biological substances; Z81.8 Family history of other mental and behavioral disorders
CPT/HCPCS: 80178; 82075; 87635; 99285

== ENCOUNTER 2023-04-28 23:42 | Inpatient (IN) | payer MEDICARE ==
[2023-04-29] MEDS ORDERED: DIPH,PERTUS(ACELL)TETVAC-LF 0.5 ML VIAL IM ONE ×2 (00:42→15:53)
[2023-04-29 01:41] LABS: Basophils % (A) 0 %; Eosinophils % (A) 0 %; HCT 37.2 % (34.0-46.0); HGB 12.9 gm/dL (11.4-16.0); Lymphocytes # (A) 2.1 k/uL (1.0-4.8); Lymphocytes % (A) 12 %; MCH 30.8 pg (25.0-35.0); MCHC 34.6 g/dL (31.0-37.0); MCV 89.1 fL (80.0-100.0); Mean Platelet Volume 7.5; Monocytes # (A) 1.4 k/uL (0-1.0); Monocytes % (A) 8 %; Neutrophils # (A) 14.3 k/uL (1.3-7.7); Neutrophils % (A) 79 %; Platelet Count 427 k/uL (150-450); RBC 4.18 m/uL (3.80-5.40); RDW 12.6 % (11.5-15.5); WBC 18.1 k/uL (3.8-10.6)
[2023-04-29] MEDS ORDERED: LORazepam 1 MG TAB PO STA ×2 (01:43→07:37)
[2023-04-29 01:44] LABS: ALT 20 U/L (4-34); AST 28 U/L (14-36); African American GFR (CKD) 43 (>60 ml/min/1.73 sqM); Albumin 4.8 g/dL (3.5-5.0); Alkaline Phosphatase 59 U/L (38-126); Anion Gap 17 mmol/L; Blood Urea Nitrogen 17 mg/dL (7-17); Calcium 10.3 mg/dL (8.4-10.2); Carbon Dioxide 20 mmol/L (22-30); Chloride 100 mmol/L (98-107); Glucose 135 mg/dL (74-99); Lithium <0.2 mmol/L; Non-African American GFR(CKD) 37 (>60 ml/min/1.73 sqM); Sodium 137 mmol/L (137-145); Total Bilirubin 0.6 mg/dL (0.2-1.3); Total Protein 7.7 g/dL (6.3-8.2)
--- NOTE | 2023-04-29 07:41 | ED ---
Psych HPI - General Chief Complaint: Psychiatric Symptoms Stated Complaint: Mental Health Time Seen by Provider: 04/29/23 00:00 Source: patient, EMS Mode of arrival: EMS Limitations: no limitations - History of Present Illness Initial Comments: This patient is a 58-year-old woman presenting to have evaluation of suicidal ideation. The patient also has lacerated her left wrist. The patient states she feels that her family would be better without her as she is evil. MD Complaint: suicidal ideation, feels depressed -: days(s) Associated Psychiatric Symptoms: depression, suicidal ideation Quality: getting worse Improves With: none Worsens With: none Associated Symptoms: denies other symptoms - Related Data Home Medications Medication Instructions Recorded Confirmed Hydrocortisone Cream 1 applic TOPICAL BID PRN 04/29/23 04/29/23 [Hydrocortisone 2.5% Cream] Triamcinolone 0.025% Cream 1 applic TOPICAL BID PRN 04/29/23 04/29/23 [Kenalog 0.025% Cream] Previous Rx's Medication Instructions Recorded Aspirin EC [Ecotrin Low Dose] 81 mg PO DAILY 14 Days #14 tab 05/08/23 Benztropine Mesylate [Cogentin] 1 mg PO DAILY PRN 14 Days #14 tab 05/08/23 Enalapril [Vasotec] 5 mg PO DAILY 14 Days #14 tab 05/08/23 Escitalopram [Lexapro] 20 mg PO DAILY 14 Days #14 tab 05/08/23 fluPHENAZine [Prolixin 5MG] 10 mg PO BID 14 Days #28 tablet 05/08/23 traZODone HCL [Desyrel] 200 mg PO HS 14 Days #14 tab 05/08/23 Allergies Allergy/AdvReac Type Severity Reaction Status Date / Time risperidone AdvReac Intermediate Unknown, Verified 04/29/23 09:53 per pcp Review of Systems ROS Statement: Those systems with pertinent positive or pertinent negative responses have been documented in the HPI. ROS Other: All systems not noted in ROS Statement are negative. Constitutional: Denies: fever, chills Respiratory: Denies: cough, dyspnea Cardiovascular: Denies: chest pain, palpitations Gastrointestinal: Denies: abdominal pain, vomiting, diarrhea Genitourinary: Denies: dysuria, hematuria Skin: Reports: other (Laceration left wrist). Denies: rash Neurological: Denies: weakness, numbness Psychiatric: Reports: depression, suicidal thoughts Past Medical History Past Medical History: Hypertension History of Any Multi-Drug Resistant Organisms: None Reported Past Surgical History: No Surgical Hx Reported Past Anesthesia/Blood Transfusion Reactions: No Reported Reaction Past Psychological History: Bipolar Smoking Status: Never smoker Past Alcohol Use History: None Reported Past Drug Use History: None Reported - Past Family History Father History Unknown: Yes General Exam General appearance: alert, in no apparent distress, anxious Head exam: Present: atraumatic, normocephalic Eye exam: Present: normal appearance. Absent: scleral icterus, conjunctival injection Neck exam: Present: normal inspection Respiratory exam: Present: normal lung sounds bilaterally. Absent: respiratory distress, wheezes, rales, rhonchi, stridor Cardiovascular Exam: Present: regular rate, normal rhythm, normal heart sounds. Absent: systolic murmur, diastolic murmur, rubs, gallop GI/Abdominal exam: Present: soft. Absent: distended, tenderness, guarding, rebound, rigid, mass Extremities exam: Present: normal inspection, normal capillary refill, other (The patient has an approximately 3 cm linear laceration to the palmar aspect of left wrist. There does not appear to be any injury to deep structures. She has intact motor and vascular function). Absent: pedal edema, calf tenderness Back exam: Present: normal inspection Neurological exam: Present: alert Psychiatric exam: Present: depressed, anxious, flat affect, suicidal ideation. Absent: homicidal ideation Skin exam: Present: warm, dry, normal color Course Vital Signs 04/28/23 04/29/23 23:46 08:10 Temperature 98.5 F 98.7 F Pulse Rate 110 H 90 Respiratory 18 18 Rate Blood Pressure 163/99 130/90 O2 Sat by Pulse 96 96 Oximetry Procedures - Laceration Laceration #1 Consent Obtained: verbal consent Indication: laceration Site: upper extremity Size (cm): 3 Description: linear Depth: simple, single layer Anesthetic Used: lidocaine 1% Anesthesia Technique: local infiltration Pre-repair: deep structures intact Size of Sutures: 5-0 Number of Sutures: 3 Technique: simple, interrupted Patient Tolerated Procedure: well, no complications Medical Decision Making - Medical Decision Making Was pt. sent in by a medical professional or institution (, PA, HANDY MAN, urgent care, hospital, or long-term...) When possible be specific @ -[No] Did you speak to anyone other than the patient for history (EMS, parent, family, police, friend...)? What history was obtained from this source @ -[No] Did you review nursing and triage notes (agree or disagree)? Why? @ -[I reviewed and agree with nursing and triage notes] Were old charts reviewed (outside hosp., previous admission, EMS record, old EKG, old radiological studies, urgent care reports/EKG's, long-term records)? Report findings @ -[No old charts were reviewed] Differential Diagnosis (chest pain, altered mental status, abdominal pain women, abdominal pain men, vaginal bleeding, weakness, fever, dyspnea, syncope, headache, dizziness, GI bleed, back pain, seizure, CVA, palpatations, mental health, musculoskeletal)? @ -Differential Mental Health Depression, anxiety, bipolar, psychosis, schizophrenia, borderline personality, situational depression, adjustment disorder, behavioral disorder, brain tumor, malingering, substance abuse, encephalopathy, medication reaction, dementia, hypothyroidism, degenerative neurologic disorder, lupus.... This is not meant to be all-inclusive list EKG interpreted by me (3pts min.). @ -[ X-rays interpreted by me (1pt min.). @ -[None done] CT interpreted by me (1pt min.). @ -[None done] U/S interpreted by me (1pt. min.). @ -[None done] What testing was considered but not performed or refused? (CT, X-rays, U/S, labs)? Why? @ -[None] What meds were considered but not given or refused? Why? @ -[None] Did you discuss the management of the patient with other professionals (professionals i.e. , PA, HANDY MAN, lab, RT, psych nurse, social security benefits interviewer, economic development manager, teacher, police commanding officer, case checker)? Give summary @ -[Case discussed with EPS personnel, and after their discussion with psychiatrist they will admit for further inpatient psychiatric care Was smoking cessation discussed for >3mins.? @ -[No] Was critical care preformed (if so, how long)? @ -[No] Were there social determinants of health that impacted care today? How? (Homelessness, low income, unemployed, alcoholism, drug addiction, transportati on, low edu. Level, literacy, decrease access to med. care, long term, rehab)? @ -[No] Was there de-escalation of care discussed even if they declined (Discuss DNR or withdrawal of care, Hospice)? DNR status @ -[No] What co-morbidities impacted this encounter? (DM, HTN, Smoking, COPD, CAD, Cancer, CVA, ARF, Chemo, Hep., AIDS, mental health diagnosis, sleep apnea, morbid obesity)? @ -[None] Was patient admitted / discharged? Hospital course, mention meds given and route, prescriptions, significant lab abnormalities, going to OR and other pertinent info. @ -[Admitted, as above Undiagnosed new problem with uncertain prognosis? @ -[No] Drug Therapy requiring intensive monitoring for toxicity (Heparin, Nitro, I nsulin, Cardizem)? @ -[No] Were any procedures done? @ -Yes, see laceration note Diagnosis/symptom? @ -[Mood disorder, acute on chronic Acute suicidal ideation Wrist laceration, acute, with suture repair Acute, or Chronic, or Acute on Chronic? @ -[default] Uncomplicated (without systemic symptoms) or Complicated (systemic symptoms)? @ -[Uncomplicated Side effects of treatment? @ -[No] Exacerbation, Progression, or Severe Exacerbation? @ -[No] Poses a threat to life or bodily function? How? (Chest pain, [place], [place], pneumonia, PE, COPD, DKA, ARF, appy, cholecystitis, CVA, Diverticulitis, Homicidal, Suicidal, threat to staff... and all critical care pts) @ -[Yes, untreated suicidal ideation may progress to suicide attempt/ - Lab Data Result diagrams: 04/29/23 00:53 04/29/23 00:53 Lab Results 04/29/23 04/29/23 04/29/23 Range/Units 00:53 00:53 00:53 WBC 18.1 H (3.8-10.6) k/uL RBC 4.18 (3.80-5.40) m/uL Hgb 12.9 (11.4-16.0) gm/dL Hct 37.2 (34.0-46.0) % MCV 89.1 (80.0-100.0) fL MCH 30.8 (25.0-35.0) pg MCHC 34.6 (31.0-37.0) g/dL RDW 12.6 (11.5-15.5) % Plt Count 427 (150-450) k/uL MPV 7.5 Neutrophils % 79 % Lymphocytes % 12 % Monocytes % 8 % Eosinophils % 0 % Basophils % 0 % Neutrophils # 14.3 H (1.3-7.7) k/uL Lymphocytes # 2.1 (1.0-4.8) k/uL Monocytes # 1.4 H (0-1.0) k/uL Eosinophils # 0.0 (0-0.7) k/uL Basophils # 0.0 (0-0.2) k/uL Sodium 137 (137-145) mmol/L Potassium 4.0 (3.5-5.1) mmol/L Chloride 100 (98-107) mmol/L Carbon Dioxide 20 L (22-30) mmol/L Anion Gap 17 mmol/L BUN 17 (7-17) mg/dL Creatinine 1.55 H (0.52-1.04) mg/dL Est GFR (CKD-EPI)AfAm 43 (>60 ml/min/1.73 sqM) Est GFR (CKD-EPI)NonAf 37 (>60 ml/min/1.73 sqM) Glucose 135 H (74-99) mg/dL Estimated Ave Glu mg/dL 105 mg/dL Hemoglobin A1c 5.3 % Calcium 10.3 H (8.4-10.2) mg/dL Total Bilirubin 0.6 (0.2-1.3) mg/dL AST 28 (14-36) U/L ALT 20 (4-34) U/L Alkaline Phosphatase 59 (38-126) U/L Total Protein 7.7 (6.3-8.2) g/dL Albumin 4.8 (3.5-5.0) g/dL [place] <0.2 mmol/L Coronavirus (PCR) (Not Detectd) Blood Type Blood Type Confirm Blood Type Recheck Bld Type Recheck Status Antibody Screen Spec Expiration Date 04/29/23 04/29/23 04/29/23 Range/Units 01:05 01:38 06:45 WBC (3.8-10.6) k/uL RBC (3.80-5.40) m/uL Hgb (11.4-16.0) gm/dL Hct (34.0-46.0) % MCV (80.0-100.0) fL MCH (25.0-35.0) pg MCHC (31.0-37.0) g/dL RDW (11.5-15.5) % Plt Count (150-450) k/uL MPV Neutrophils % % Lymphocytes % % Monocytes % % Eosinophils % % Basophils % % Neutrophils # (1.3-7.7) k/uL Lymphocytes # (1.0-4.8) k/uL Monocytes # (0-1.0) k/uL Eosinophils # (0-0.7) k/uL Basophils # (0-0.2) k/uL Sodium (137-145) mmol/L Potassium (3.5-5.1) mmol/L Chloride (98-107) mmol/L Carbon Dioxide (22-30) mmol/L Anion Gap mmol/L BUN (7-17) mg/dL Creatinine (0.52-1.04) mg/dL Est GFR (CKD-EPI)AfAm (>60 ml/min/1.73 sqM) Est GFR (CKD-EPI)NonAf (>60 ml/min/1.73 sqM) Glucose (74-99) mg/dL Estimated Ave Glu mg/dL mg/dL Hemoglobin A1c % Calcium (8.4-10.2) mg/dL Total Bilirubin (0.2-1.3) mg/dL AST (14-36) U/L ALT (4-34) U/L Alkaline Phosphatase (38-126) U/L Total Protein (6.3-8.2) g/dL Albumin (3.5-5.0) g/dL [place] mmol/L Coronavirus (PCR) Not Detected (Not Detectd) Blood Type A Positive Blood Type Confirm A Positive Blood Type Recheck No Previous Record Bld Type Recheck Status CABO Indicated Antibody Screen NEGATIVE Spec Expiration Date 05/02/20232304 Disposition Clinical Impression: Depression, Suicidal ideation, Laceration of left wrist Disposition: ADMITTED IP TO THIS HOSP Condition: Stable Is patient prescribed a controlled substance at d/c from ED?: No
[2023-04-29] MEDS ORDERED: MAG HYDROX/AL HYDROX/SIMETH 30 ML CUP PO PRN (09:15)
[2023-04-29] MEDS ORDERED: LORazepam 2 MG/ML INJ IM PRN (09:15)
[2023-04-29] MEDS ORDERED: HALOPERIDOL LACTATE 5 MG/ML 1 ML VIAL IM PRN (09:15)
[2023-04-29] MEDS ORDERED: ACETAMINOPHEN TAB 325 MG TAB PO PRN (09:15)
[2023-04-29] MEDS ORDERED: MAGNESIUM HYDROXIDE 2,400 MG/10 ML CUP PO PRN (09:15)
[2023-04-29] MEDS: haloperidoL 5 MG TAB PO PRN (10:11)
--- NOTE | 2023-04-29 14:03 | P.HP ---
Psychiatric H&P - . H&P Date: 04/29/23 History & Physical: Allergies Allergy/AdvReac Type Severity Reaction Status Date / Time risperidone AdvReac Intermediate Unknown, Verified 04/29/23 09:53 per pcp Vital Signs Temp 97.9 F 04/29/23 08:58 Pulse 117 H 04/29/23 08:58 Resp 18 04/29/23 08:58 BP 100/62 04/29/23 08:58 Pulse Ox 97 04/29/23 08:58 FiO2 Intake & Output 04/28/23 04/29/23 04/29/23 18:59 06:59 18:59 Weight 68.039 kg 68.13 kg Laboratory Last Values WBC 18.1 k/uL (3.8-10.6) H 04/29/23 00:53 RBC 4.18 m/uL (3.80-5.40) 04/29/23 00:53 Hgb 12.9 gm/dL (11.4-16.0) 04/29/23 00:53 Hct 37.2 % (34.0-46.0) 04/29/23 00:53 MCV 89.1 fL (80.0-100.0) 04/29/23 00:53 MCH 30.8 pg (25.0-35.0) 04/29/23 00:53 MCHC 34.6 g/dL (31.0-37.0) 04/29/23 00:53 RDW 12.6 % (11.5-15.5) 04/29/23 00:53 Plt Count 427 k/uL (150-450) 04/29/23 00:53 MPV 7.5 04/29/23 00:53 Neutrophils % 79 % 04/29/23 00:53 Lymphocytes % 12 % 04/29/23 00:53 Monocytes % 8 % 04/29/23 00:53 Eosinophils % 0 % 04/29/23 00:53 Basophils % 0 % 04/29/23 00:53 Neutrophils # 14.3 k/uL (1.3-7.7) H 04/29/23 00:53 Lymphocytes # 2.1 k/uL (1.0-4.8) 04/29/23 00:53 Monocytes # 1.4 k/uL (0-1.0) H 04/29/23 00:53 Eosinophils # 0.0 k/uL (0-0.7) 04/29/23 00:53 Basophils # 0.0 k/uL (0-0.2) 04/29/23 00:53 Sodium 137 mmol/L (137-145) 04/29/23 00:53 Potassium 4.0 mmol/L (3.5-5.1) 04/29/23 00:53 Chloride 100 mmol/L (98-107) 04/29/23 00:53 Carbon Dioxide 20 mmol/L (22-30) L 04/29/23 00:53 Anion Gap 17 mmol/L 04/29/23 00:53 BUN 17 mg/dL (7-17) 04/29/23 00:53 Creatinine 1.55 mg/dL (0.52-1.04) H 04/29/23 00:53 Est GFR (CKD-EPI)AfAm 43 (>60 ml/min/1.73 sqM) 04/29/23 00:53 Est GFR (CKD-EPI)NonAf 37 (>60 ml/min/1.73 sqM) 04/29/23 00:53 Glucose 135 mg/dL (74-99) H 04/29/23 00:53 Calcium 10.3 mg/dL (8.4-10.2) H 04/29/23 00:53 Total Bilirubin 0.6 mg/dL (0.2-1.3) 04/29/23 00:53 AST 28 U/L (14-36) 04/29/23 00:53 ALT 20 U/L (4-34) 04/29/23 00:53 Alkaline Phosphatase 59 U/L (38-126) 04/29/23 00:53 Total Protein 7.7 g/dL (6.3-8.2) 04/29/23 00:53 Albumin 4.8 g/dL (3.5-5.0) 04/29/23 00:53 [place] <0.2 mmol/L 04/29/23 00:53 Coronavirus (PCR) Not Detected (Not Detectd) 04/29/23 06:45 Blood Type A Positive 04/29/23 01:05 Blood Type Confirm A Positive 04/29/23 01:38 Blood Type Recheck No Previous Record 04/29/23 01:05 Bld Type Recheck Status CABO Indicated 04/29/23 01:05 Antibody Screen NEGATIVE 04/29/23 01:05 Spec Expiration Date 05/02/2023230404/29/23 01:05 04/29/23 13:55 Psychiatric evaluation Edu is a 58-year-old female with long history of mental illness and carries a diagnoses of schizoaffective disorder who was hospitalized patient's family had contacted the police regarding patient and threatening to kill herself When seen today patient reports that she was feeling increasingly depressed and that her voices are bothersome She said that she had thoughts of wanting to kill herself and felt her family was better off without her She says that she has never had any relief from the voices in spite of different medications She states that he currently takes Prolixin, Lamictal, trazodone and Remeron She said that she also takes enalapril for her hypertension She says that her last psychiatric hospitalization was in 2020 under similar circumstances She says that she is tired of her current symptoms and she seems to spend most of her time sleeping and not taking care of herself She says that she lives in her own house and is on disability She admits that she does want to get better Past history personal social history Patient remains a brief and vague historian Patient admits that she is currently on disability and lives in her own place She says that her last hospitalization was in 2020 but that she has been in this unit multiple times in the past She admits that she does not seem to get any relief in spite of taking her medications on a regular basis MENTAL STATUS EXAM: General Appearance: Patient appears to be thin, stated age is alert, patient was pleasant during the interview Behavior: Patient is seated without any agitated behavior. . Speech: Patient's speech is fluent and nonpressured. Mood/Affect: Patient reports being depressed She admits feeling frustrated Suicidality/Homicidality: Patient denies having any homicidal ideation intent or plan. At this time Denies any suicidal ideations intent or plan at this time Perceptions: Patient admits to chronic intermittent auditory hallucinations She denies any visual hallucinations Though content/process: There is no evidence of any delusional thought content and thought process is linear and goal-directed. Memory and concentration: AOX3, grossly intact for the purposes of this session. Can spell "WORLD" backwards Judgment and insight: Impaired STRENGTHS/WEAKNESSES: strength is that patient is resilient. INTELLECT: average IMPRESSIONS: Schizoaffective disorder unspecified Adjustment disorder with mixed emotional features PLAN: -Patient is admitted under voluntary status to MHU for stabilization of psychiatric symptoms and safety. Patient has signed adult voluntary form and medication consent and is placed in patient's chart. -Medications : -Ativan and Haldol PRN for agitation/aggression As far as medications will continue her medications that include Wellbutrin XL 300 mg daily Lexapro 20 mg daily Trazodone 200 mg at bedtime Enalapril 5 mg daily Lamictal 100 mg daily Ambien 10 mg daily at bedtime when necessary Further medication changes will depend on patient's presentation and symptomatology and progress -Patient was informed of the risks, benefits and side effects of the medication and patient verbally consented to taking the medications. Patient signed med consent form and was placed in chart. -Internal Medicine consult to perform medical evaluation and physical. -SW on board for discharge planning. Encourage patient to participate in groups to work on coping skills. jasvir call MD 04/29/23
[2023-04-29] MEDS: LORazepam 1 MG TAB PO PRN (21:03)
[2023-04-29] MEDS: MELATONIN 3 MG TABLET PO SCH (21:03)
--- NOTE | 2023-04-30 00:10 | P.CONS ---
History of Present Illness - Reason for Consult Consult date: 04/30/23 - History of Present Illness The patient is a 58-year-old female who presented to the emergency room with complaints of depression and suicidal ideation. The patient was admitted to the mental health unit where she was seen and evaluated. The patient states that she been having bad thoughts about harming herself, which prompted her to seek help. She reports a history of hypertension. She denied tobacco, alcohol, or substance use. She denied any additional physical complaints at the time of interview. She denied experiencing chest discomfort, shortness of breath, fever, chills, cough, nausea, vomiting, abdominal pain, diarrhea. Review of systems: Pertinent positives and negatives as discussed in HPI, a complete review of systems was performed and all other systems are negative. Physical examination: General: non toxic, no distress, appears at stated age, normal weight Derm: no unusual rashes/lesions, no unusual ecchymoses, warm, dry Head: atraumatic, normocephalic, symmetric Eyes: EOMI, no lid lag, anicteric sclera ENT: Nose and ears atraumatic, no thrush, no pharyngeal erythema Neck: trachea midline, supple Mouth: no lip lesion, mucus membranes moist Cardiovascular: S1S2 reg, no murmur, no edema Lungs: CTA bilateral, no rhonchi, no rales , no accessory muscle use Abdominal: soft, nontender to palpation, no guarding Ext: no gross muscle atrophy, no contractures, Neuro: No gross focal neuro deficits noted Psych: Alert, oriented, guarded affect Assessment: Hypertension Depression and suicidal ideation Kidney disease Leukocytosis Imaging: None performed Data Review: Laboratory evaluation was reviewed with WBC count 18.1, CO2 20, creatinine 1.55, glucose 135, calcium 10.3, lithium less than 0.2. Plan: Continue with home medication enalapril No signs of active infection at this time Leukocytosis likely secondary to acute stress Defer management of depression and suicidal ideation to primary psychiatry service Thank you for allowing us to participate in the care of this patient. We will follow peripherally. Do not hesitate to contact us with questions. Someone can be reached from the [facility] hospitalist group at all hours of the day at [phone]. Past Medical History Past Medical History: Hypertension Additional Past Medical History / Comment(s): psoriasis History of Any Multi-Drug Resistant Organisms: None Reported Past Surgical History: Tonsillectomy Past Anesthesia/Blood Transfusion Reactions: No Reported Reaction Smoking Status: Former smoker - Past Family History Father History Unknown: Yes Medications and Allergies Home Medications Medication Instructions Recorded Confirmed Type Aspirin EC [Ecotrin Low Dose] 81 mg PO DAILY 30 Days tab 01/20/22 04/29/23 Rx Enalapril [Vasotec] 5 mg PO DAILY 04/29/23 04/29/23 History Escitalopram [Lexapro] 20 mg PO DIRECTED 04/29/23 04/29/23 History Hydrocortisone Cream 1 applic TOPICAL BID PRN 04/29/23 04/29/23 History [Hydrocortisone 2.5% Cream] RABEprazole SODIUM 20 mg PO DAILY 04/29/23 04/29/23 History Triamcinolone 0.025% Cream 1 applic TOPICAL BID PRN 04/29/23 04/29/23 History [Kenalog 0.025% Cream] Zolpidem [Ambien] 10 mg PO HS PRN 04/29/23 04/29/23 History buPROPion XL [Wellbutrin XL] 300 mg PO DIRECTED 04/29/23 04/29/23 History lamoTRIgine [LaMICtal] 100 mg PO W/SUPPER 04/29/23 04/29/23 History traZODone HCL [Desyrel] 200 mg PO DIRECTED 04/29/23 04/29/23 History Allergies Allergy/AdvReac Type Severity Reaction Status Date / Time risperidone AdvReac Intermediate Unknown, Verified 04/29/23 09:53 per pcp Physical Exam Vitals: Vital Signs Temp Pulse Pulse Resp BP BP Pulse Ox 04/29/23 08:58 97.9 F 117 H 18 100/62 97 04/29/23 08:10 98.7 F 90 18 130/90 96 Intake and Output 04/29/23 04/29/23 04/30/23 14:59 22:59 06:59 Other: Weight 68.13 kg Results CBC & Chem 7: 04/29/23 00:53 04/29/23 00:53 Labs: Abnormal Lab Results - Last 24 Hours (Table) 04/29/23 04/29/23 Range/Units 00:53 00:53 WBC 18.1 H (3.8-10.6) k/uL Neutrophils # 14.3 H (1.3-7.7) k/uL Monocytes # 1.4 H (0-1.0) k/uL Carbon Dioxide 20 L (22-30) mmol/L Creatinine 1.55 H (0.52-1.04) mg/dL Glucose 135 H (74-99) mg/dL Calcium 10.3 H (8.4-10.2) mg/dL
[2023-04-30] MEDS: lisinopriL 10 MG TAB PO SCH (08:48)
[2023-04-30] MEDS: ASPIRIN 81 MG PO SCH (08:48)
--- NOTE | 2023-04-30 11:27 | P.PN ---
Subjective Progress Note Date: 04/30/23 Principal diagnosis: IMPRESSIONS: Schizoaffective disorder unspecified Adjustment disorder with mixed emotional features Subjective/subjective data: The patient reports that the voices a little bit less and that she is feeling slightly better She said that she slept better last night also She states that she still feels helpless and hopeless She denies any active suicidal ideations or plans She denies that she had any side effects from her current medications She stated that she has chronic issues with a motivation and fatigue and lack of interest MENTAL STATUS EXAM: General Appearance: Patient appears to be thin, stated age is alert, patient was pleasant during the interview Behavior: Patient is seated without any agitated behavior. . Speech: Patient's speech is fluent and nonpressured. Mood/Affect: Patient reports being depressed She admits feeling frustrated Suicidality/Homicidality: Patient denies having any homicidal ideation intent or plan. At this time Denies any suicidal ideations intent or plan at this time Perceptions: Patient admits to chronic intermittent auditory hallucinations She denies any visual hallucinations Though content/process: There is no evidence of any delusional thought content and thought process is linear and goal-directed. Memory and concentration: AOX3, grossly intact for the purposes of this session. Judgment and insight: Impaired PLAN: -Patient is admitted under voluntary status to MHU for stabilization of psychiatric symptoms and safety. Patient has signed adult voluntary form and medication consent and is placed in patient's chart. -Medications : -Ativan and Haldol PRN for agitation/aggression As far as medications will continue her medications that include Wellbutrin XL 300 mg daily Lexapro 20 mg daily Trazodone 200 mg at bedtime Enalapril 5 mg daily Lamictal 100 mg daily Ambien 10 mg daily at bedtime when necessary Further medication changes will depend on patient's presentation and sympto matology and progress -Patient was informed of the risks, benefits and side effects of the medication and patient verbally consented to taking the medications. Patient signed med consent form and was placed in chart. -Internal Medicine consult to perform medical evaluation and physical. Patient agreed to have started on Zyprexa 5 mg at bedtime to start with and to be titrated to response However if it adds more to her fatigue and a motivation patient may need an antidepressant which is less sedating -SW on board for discharge planning. Encourage patient to participate in groups to work on coping skills. jasvir call MD 04/30/23 Objective - Vital Signs Vital signs: Vital Signs Temp 97.5 F L 04/30/23 07:03 Pulse 96 04/30/23 08:49 Resp 16 04/30/23 07:03 BP 100/76 04/30/23 08:49 Pulse Ox 97 04/29/23 08:58 FiO2 Intake & Output 04/29/23 04/30/23 04/30/23 18:59 06:59 18:59 Weight 68.13 kg 67.6 kg - Labs CBC & Chem 7: 04/29/23 00:53 04/29/23 00:53 Labs: Abnormal Lab Results - Last 24 Hours (Table) 04/29/23 Range/Units 19:34 TSH 0.400 L (0.465-4.680) mIU/L
[2023-04-30] MEDS: OLANZapine ODT 5 MG TAB PO SCH (12:58)
[2023-04-30] MEDS: MELATONIN 3 MG TABLET PO SCH (21:30)
[2023-04-30] MEDS: LORazepam 1 MG TAB PO PRN (21:31)
[2023-04-30] MEDS: haloperidoL 5 MG TAB PO PRN (21:31)
[2023-05-01] MEDS ORDERED: OLANZapine ODT 5 MG TAB PO SCH (09:00)
[2023-05-01] MEDS: OLANZapine ODT 5 MG TAB PO SCH (09:45)
[2023-05-01] MEDS: lisinopriL 10 MG TAB PO SCH (09:45)
[2023-05-01] MEDS: ASPIRIN 81 MG PO SCH (09:45)
[2023-05-01] MEDS: LORazepam 1 MG TAB PO PRN ×2 (09:46→19:56)
[2023-05-01] MEDS: haloperidoL 5 MG TAB PO PRN ×2 (09:46→19:56)
[2023-05-01] MEDS ORDERED: TRIAMCINOLONE 0.1% CREAM 80 GM TUBE TOPICAL PRN ×2 (12:50)
--- NOTE | 2023-05-01 12:55 | P.PN ---
Progress Note - Text Progress Note Date: 05/01/23 Interval history: The patient was seen today for psychiatric follow-up regarding her schizoaffec tive disorder. Patient was laying in bed and states the voices are "really bothering me". She states that she wants to sleep most of the day and is finding little motivation to go to groups or participate in the milieu. She claims that she is feeling somewhat depressed today. She was able to answer most questions appropriately, not endorsing any paranoia. She states that the voices are mainly negative in nature. We spoke of other medications she has been on in the past and is agreeable to try them again. She states that she has not been compliant with her medications. At this time she is not endorsing any suicidal thoughts, denying any homicidal ideations as well. She is denying any visual hallucinations. She is taking her medications as prescribed. MENTAL STATUS EXAM: General Appearance: Patient appears to be thin, has blount hair, stated age is alert, patient was pleasant during the interview, wearing hospital gown Behavior: Patient is seated without any agitated behavior. Attempts to cooperate. Mild distress. Speech: Patient's speech is fluent and nonpressured.[place]. Mood/Affect: Patient reports being depressedAnd anxious, affect is congruent. Suicidality/Homicidality: Patient denies having any homicidal ideation intent or plan. At this time Denies any suicidal ideations intent or plan at this time Perceptions: Patient admits to auditory hallucinations Mainly negative in nature and are causing distress. Has any visual hallucinations. Though content/process: There is no evidence of any delusional thought content and thought process is linear and goal-directed. [place], poverty of content. Memory and concentration: AOX3, grossly intact for the purposes of this session. Judgment and insight: Impaired PLAN: -Patient is admitted under voluntary status to MHU for stabilization of psychiatric symptoms and safety. Patient has signed adult voluntary form and medication consent and is placed in patient's chart. -Medications : Prolixin 3 mg twice a day for mood stabilization/psychosis, trazodone 50 mg daily at bedtime for insomnia/mood, Lithobid 450 mg daily for mood stabilization. -Ativan and Haldol PRN for agitation/aggression -NRT - not needed as patient does not smoke -SW on board for discharge planning. Encourage patient to participate in groups to work on coping skills.
[2023-05-01] MEDS: LITHIUM CARBONATE ER 450 MG TABLET.ER PO SCH (19:56)
[2023-05-01] MEDS ORDERED: traZODone HCL 50 MG TAB PO SCH (21:00)
[2023-05-01] MEDS ORDERED: LITHIUM CARBONATE 300 MG CAP PO SCH (21:00)
[2023-05-02] MEDS: LORazepam 1 MG TAB PO PRN ×2 (02:02→20:56)
[2023-05-02] MEDS: haloperidoL 5 MG TAB PO PRN ×2 (02:02→20:56)
[2023-05-02] MEDS: lisinopriL 10 MG TAB PO SCH (08:36)
[2023-05-02] MEDS: ASPIRIN 81 MG PO SCH (08:36)
--- NOTE | 2023-05-02 12:07 | P.PN ---
Progress Note - Text Progress Note Date: 05/02/23 Interval history: The patient was seen today for psychiatric follow-up regarding her schizoaffec tive disorder. Patient was laying in bed and states that she overall is doing mildly better since yesterday. She claims that the voices have "calmed down a little bit". She states "her mood is still depressed and she is having some anxiety. She states that she was not able to sleep last night and we spoke about increasing her trazodone which she is okay with. She has not been going to many groups or participate in the milieu. She claims that she is feeling somewhat depressed today. She was able to answer most questions appropriately, not endorsing any paranoia. She states that the voices are mainly negative in nature however are improving. At this time she is not endorsing any suicidal thoughts, denying any homicidal ideations as well. She is denying any visual hallucinations. She is taking her medications as prescribed. MENTAL STATUS EXAM: General Appearance: Patient appears to be thin, has blount hair, stated age is alert, patient was pleasant during the interview, wearing hospital gown Behavior: Patient is seated without any agitated behavior. Attempts to cooperate. Mild distress. Speech: Patient's speech is fluent and nonpressured.[place], improving mildly Mood/Affect: Patient reports being depressed , affect is congruent and constricted Suicidality/Homicidality: Patient denies having any homicidal ideation intent or plan. At this time Denies any suicidal ideations intent or plan at this time Perceptions: Patient admits to auditory hallucinations Mainly negative in nature and are causing distress. Has any visual hallucinations. Though content/process: There is no evidence of any delusional thought content and thought process is linear and goal-directed. [place], poverty of content. Memory and concentration: AOX3, grossly intact for the purposes of this session. Judgment and insight: poor, improving mildly PLAN: -Patient is admitted under voluntary status to MHU for stabilization of psychiatric symptoms and safety. Patient has signed adult voluntary form and medication consent and is placed in patient's chart. -Medications : Increase Prolixin 5 mg twice a day for mood stabilization/psychosis, increase trazodone 100 mg daily at bedtime for insomnia/mood, Lithobid 450 mg daily for mood stabilization. Added Lexapro 10 mg daily for mood/anxiety. -Ativan and Haldol PRN for agitation/aggression -NRT - not needed as patient does not smoke -SW on board for discharge planning. Encourage patient to participate in groups to work on coping skills. We'll attempt to speak with patient about transitioning her onto a long-acting injection prior to discharge. Likely discharge in 2-3 days back home.
[2023-05-02] MEDS: ESCITALOPRAM 10 MG TAB PO SCH (12:25)
[2023-05-02 16:23] VITALS: BMI 24.0
[2023-05-02] MEDS: LITHIUM CARBONATE ER 450 MG TABLET.ER PO SCH (20:55)
[2023-05-02] MEDS ORDERED: traZODone HCL 100 MG TAB PO SCH (21:00)
[2023-05-03] MEDS: haloperidoL 5 MG TAB PO PRN ×3 (03:05→20:45)
[2023-05-03] MEDS: LORazepam 1 MG TAB PO PRN ×3 (03:05→20:45)
[2023-05-03] MEDS: lisinopriL 10 MG TAB PO SCH (08:50)
[2023-05-03] MEDS: ASPIRIN 81 MG PO SCH (08:50)
[2023-05-03] MEDS: ESCITALOPRAM 10 MG TAB PO SCH (08:50)
--- NOTE | 2023-05-03 11:34 | P.PN ---
Progress Note - Text Progress Note Date: 05/03/23 Interval history: The patient was seen today for psychiatric follow-up regarding her schizoaffec tive disorder. Patient was laying in bed and was sleeping today. She claimed that she is doing a bit better compared to yesterday. Her last 11 significant distress due to the voices. She did not completely state what they are saying however the she is stating that they are negative and distressing towards her. She claims that she used to be on "30 mg of Prolixin" through [facility] previously. She claims that she also did not sleep well last night. She continues to isolate mainly in her room, mild improvement in her hygiene and grooming today she states that she showered earlier today. Claims that she is up for meals, not going to many groups. Not having many racing thoughts. She was able to answer most questions appropriately, not endorsing any paranoia. She states that the voices are mainly negative in nature however are improving. At this time she is not endorsing any suicidal thoughts, denying any homicidal ideations as well. She is denying any visual hallucinations. She is taking her medications as prescribed. MENTAL STATUS EXAM: General Appearance: Patient appears to be thin, has blount hair, stated age is alert, patient was pleasant during the interview, wearing hospital gown Behavior: Patient is seated without any agitated behavior. Attempts to cooperate. Mild distress. Speech: Patient's speech is fluent and nonpressured. [place], improving mildly Mood/Affect: Patient claims that her mood is mildly improving affect is congruent and constricted Suicidality/Homicidality: Patient denies having any homicidal ideation intent or plan. At this time Denies any suicidal ideations intent or plan at this time Perceptions: Patient admits to auditory hallucinations Mainly negative in nature and are causing distress, improving mildly. Has any visual hallucinations. Though content/process: There is no evidence of any delusional thought content and thought process is linear and goal-directed. [place], poverty of content. Memory and concentration: AOX3, grossly intact for the purposes of this session. Judgment and insight: poor, improving mildly PLAN: -Patient is admitted under voluntary status to MHU for stabilization of psychiatric symptoms and safety. Patient has signed adult voluntary form and medication consent and is placed in patient's chart. -Medications : Increase Prolixin 5 mg 3 times a day for mood stabilization/psychosis, increase trazodone 200 mg daily at bedtime for insomnia/mood, Lithobid 450 mg daily for mood stabilization, Lexapro 10 mg daily for mood/anxiety. -Ativan and Haldol PRN for agitation/aggression -NRT - not needed as patient does not smoke -SW on board for discharge planning. Encourage patient to participate in groups to work on coping skills. We'll attempt to speak with patient about transitioning her onto a long-acting injection prior to discharge. Likely discharge in 2-3 days back home.
[2023-05-03] MEDS: LITHIUM CARBONATE ER 450 MG TABLET.ER PO SCH (20:45)
[2023-05-03] MEDS: traZODone HCL 100 MG TAB PO SCH (20:45)
[2023-05-04] MEDS: lisinopriL 10 MG TAB PO SCH (09:10)
[2023-05-04] MEDS: ASPIRIN 81 MG PO SCH (09:10)
[2023-05-04] MEDS: ESCITALOPRAM 10 MG TAB PO SCH (09:10)
--- NOTE | 2023-05-04 10:26 | P.PN ---
Progress Note - Text Progress Note Date: 05/04/23 Interval history: The patient was seen today for psychiatric follow-up regarding her schizoaffec tive disorder and was seen laying in her bed. She claims that she was up earlier to take her medications. She continues to state that she hears a "devil talking to me" however does state that the voice has been decreasing in nature and less distressing to her. She does claim that her mood and anxiety have been mildly improving since taking Lexapro. We spoke about the option to transition her onto a long-acting injection however patient declined at this time. She states that she slept much better last night with the increase in trazodone and thanked caption writer. She continues to isolate mainly in her room, mild improvement in her hygiene and grooming today. Claims that she is up for meals, not going to many groups. not endorsing any paranoia. She states that the voices are mainly negative in nature however are improving. At this time she is not endorsing any suicidal thoughts, denying any homicidal ideations as well. She is denying any visual hallucinations. She is taking her medications as prescribed. MENTAL STATUS EXAM: General Appearance: Patient appears to be thin, has blount hair, stated age is alert, patient was pleasant during the interview, wearing hospital gown Behavior: Patient is seated without any agitated behavior. Attempts to cooperate. Speech: Patient's speech is fluent and nonpressured. [place], improving mildly Mood/Affect: Patient claims that her mood is mildly improving affect is congruent and constricted, mildly improving. Suicidality/Homicidality: Patient denies having any homicidal ideation intent or plan. At this time Denies any suicidal ideations intent or plan at this time Perceptions: Patient admits to auditory hallucinations Mainly negative in nature and are causing distress, improving mildly. Has any visual hallucinations. Though content/process: There is no evidence of any delusional thought content and thought process is linear and goal-directed. [place], poverty of content. Memory and concentration: AOX3, grossly intact for the purposes of this session. Judgment and insight: Chronically poor, improving mildly PLAN: -Patient is admitted under voluntary status to MHU for stabilization of psychiatric symptoms and safety. Patient has signed adult voluntary form and medication consent and is placed in patient's chart. -Medications : Increase Prolixin 10 mg 2 times a day for mood stabilization/psychosis, trazodone 200 mg daily at bedtime for insomnia/mood, Lithobid 450 mg daily for mood stabilization, increase Lexapro 20 mg daily for mood/anxiety. patient was offered however refused WEAVER. -Ativan and Haldol PRN for agitation/aggression -NRT - not needed as patient does not smoke -SW on board for discharge planning. Encourage patient to participate in groups to work on coping skills. Likely discharge in 1-2 days days back home.
[2023-05-04] MEDS ORDERED: BENZTROPINE MESYLATE 1 MG TAB PO PRN (10:27)
[2023-05-04] MEDS ORDERED: ESCITALOPRAM 10 MG TAB PO STA (10:27)
[2023-05-04] MEDS: traZODone HCL 100 MG TAB PO SCH (20:57)
[2023-05-04] MEDS: LITHIUM CARBONATE ER 450 MG TABLET.ER PO SCH (20:57)
[2023-05-05 07:01] VITALS: RESP 16
[2023-05-05] MEDS: ESCITALOPRAM 20 MG TAB PO SCH (08:39)
[2023-05-05] MEDS: ASPIRIN 81 MG PO SCH (08:39)
[2023-05-05] MEDS: lisinopriL 10 MG TAB PO SCH (10:29)
[2023-05-05] MEDS: haloperidoL 5 MG TAB PO PRN (20:50)
[2023-05-05] MEDS: LORazepam 1 MG TAB PO PRN (20:50)
[2023-05-05] MEDS: LITHIUM CARBONATE ER 450 MG TABLET.ER PO SCH (20:51)
[2023-05-05] MEDS: traZODone HCL 100 MG TAB PO SCH (20:51)
--- NOTE | 2023-05-06 08:25 | P.PN ---
Subjective Progress Note Date: 05/06/23 Principal diagnosis: Diagnosis: Schizoaffective disorder The patient was seen today for psychiatric follow-up regarding her schizoaffective disorder and was seen laying in her bed. I offered to talk to her in the office but she was tired and did not want to get up. It was about 8:30 in the morning. She says that the medicines are working and that the voices are dying down. She does claim that her mood and anxiety have been mildly improving since taking Lexapro. She did not want to change any medicines. She states that she slept well last night. She continues to isolate mainly in her room. She is taking her medications as prescribed. MENTAL STATUS EXAM: No eye contact General Appearance: Patient appears to be thin, has blount hair, stated age is alert, patient was pleasant during the interview, wearing hospital gown Behavior: Patient is laying in bed and did not want to get up Speech: Patient's speech is soft and not productive Mood/Affect: Patient claims that her mood is mildly improving affect is hard to read if she was not looking at me. Suicidality/Homicidality: Patient denies having any homicidal ideation intent or plan. At this time Denies any suicidal ideations intent or plan at this time. Perceptions: Patient admits to auditory hallucinations Mainly negative in nature and are causing distress, she says these are continuing to improve. Though content/process: There is no evidence of any delusional thought content and thought process is linear and goal-directed. [place], poverty of content. Memory and concentration: AOX3, grossly intact for the purposes of this session. Judgment and insight: Hard to assess PLAN: No change in medicine at this time. -Patient is admitted under voluntary status to MHU for stabilization of psyc hiatric symptoms and safety. Patient has signed adult voluntary form and medication consent and is placed in patient's chart. She is satisfied with the medicines as is starting to work and does not want to change them. -Medications : Continue Prolixin 10 mg 2 times a day for mood stabilization/psy chosis, trazodone 200 mg daily at bedtime for insomnia/mood, Lithobid 450 mg daily for mood stabilization, increase Lexapro 20 mg daily for mood/anxiety. -Ativan and Haldol PRN for agitation/aggression -NRT - not needed as patient does not smoke -SW on board for discharge planning. Encourage patient to participate in groups to work on coping skills. Likely discharge in 1-2 days days back home. Objective - Vital Signs Vital signs: Vital Signs Temp 98.3 F 05/05/23 07:00 Pulse 92 05/05/23 08:42 Resp 16 05/05/23 07:00 BP 96/51 05/05/23 08:42 Pulse Ox 96 05/05/23 07:00 FiO2 - Labs CBC & Chem 7: 04/29/23 00:53 04/29/23 00:53
[2023-05-06] MEDS: lisinopriL 10 MG TAB PO SCH (08:42)
[2023-05-06] MEDS: ESCITALOPRAM 20 MG TAB PO SCH (08:42)
[2023-05-06] MEDS: ASPIRIN 81 MG PO SCH (08:42)
--- NOTE | 2023-05-06 15:29 | P.PN ---
Progress Note - Text Progress Note Date: 05/05/23 Interval history: The patient was seen today for psychiatric follow-up regarding her schizoaffec tive disorder and was seen laying in her bed. she claims that she is able to sleep a bit better now. She claims that she was up earlier to take her medications however is not interested in taking part in [facility] groups and has mainly been isolating in her room. She states that her voices have been calming down and less distressing. she has mild improvement in her hygiene and grooming today. Claims that she is up for meals. not endorsing any paranoia or delusions today. At this time she is not endorsing any suicidal thoughts, denying any homicidal ideations as well. She is denying any visual hallucinations. She is taking her medications as prescribed. MENTAL STATUS EXAM: General Appearance: Patient appears to be thin, has blount hair, stated age is alert, patient was pleasant during the interview, wearing hospital gown Behavior: Patient is seated without any agitated behavior. Attempts to cooperate. Speech: Patient's speech is fluent and nonpressured. [place], improving mildly Mood/Affect: Patient claims that her mood is mildly improving affect is congruent and constricted, mildly improving. Suicidality/Homicidality: Patient denies having any homicidal ideation intent or plan. At this time Denies any suicidal ideations intent or plan at this time Perceptions: Patient admits to improving auditory hallucinations, denies any vh Though content/process: There is no evidence of any delusional thought content and thought process is linear and goal-directed. [place] Memory and concentration: AOX3, grossly intact for the purposes of this session. Judgment and insight: Chronically poor, improving mildly PLAN: -Patient is admitted under voluntary status to MHU for stabilization of psychiatric symptoms and safety. Patient has signed adult voluntary form and medication consent and is placed in patient's chart. -Medications : Prolixin 10 mg 2 times a day for mood stabilization/psychosis, trazodone 200 mg daily at bedtime for insomnia/mood, Lithobid 450 mg daily for mood stabilization, Lexapro 20 mg daily for mood/anxiety. patient was offered however refused WEAVER. -Ativan and Haldol PRN for agitation/aggression -NRT - not needed as patient does not smoke -SW on board for discharge planning. Encourage patient to participate in groups to work on coping skills. Likely discharge back home early next week if patient does well over the weekend.
[2023-05-06] MEDS: LITHIUM CARBONATE ER 450 MG TABLET.ER PO SCH (20:47)
[2023-05-06] MEDS: haloperidoL 5 MG TAB PO PRN (20:47)
[2023-05-06] MEDS: LORazepam 1 MG TAB PO PRN (20:47)
[2023-05-06] MEDS: traZODone HCL 100 MG TAB PO SCH (20:47)
[2023-05-07] MEDS: lisinopriL 10 MG TAB PO SCH (09:03)
[2023-05-07] MEDS: ESCITALOPRAM 20 MG TAB PO SCH (09:03)
[2023-05-07] MEDS: ASPIRIN 81 MG PO SCH (09:03)
--- NOTE | 2023-05-07 11:28 | P.PN ---
Subjective Progress Note Date: 05/07/23 Principal diagnosis: Diagnosis: Schizoaffective disorder The patient was seen today for psychiatric follow-up regarding her schizoaffective disorder and was seen laying in her bed. I offered to talk to her in the office but she was tired and did not want to get up. She says that the medicines are working and that the voices are dying down. She does claim that her mood and anxiety have been mildly improving since taking Lexapro. She says she is feeling perhaps a little bit more depressed. When asked her what her mind focuses on his to why she should be depressed she says she doesn't know if she just feels bad and doesn't want to feel bad and thinks killing herself would be the only way to get out of it. She states that she slept well last night. She continues to isolate mainly in her room. She is taking her medications as prescribed. MENTAL STATUS EXAM: No eye contact General Appearance: Patient appears to be thin, has blount hair, stated age is alert, patient was pleasant during the interview, wearing hospital gown Behavior: Patient is laying in bed and did not want to get up Speech: Patient's speech is soft and not productive Mood/Affect: Patient claims that her mood is mildly improving affect is tense and sad. Suicidality/Homicidality: Patient denies having any homicidal ideation intent or plan. At this time she says that it seems that suicide is the only way to feel better and she can't stand feeling like this long. Perceptions: Patient admits to auditory hallucinations Mainly negative in nature and are causing distress, she says these are continuing to improve. Though content/process: There is no evidence of any delusional thought content and thought process is linear and goal-directed. [place], poverty of content. Memory and concentration: AOX3, grossly intact for the purposes of this session. Judgment and insight: Hard to assess PLAN: No change in medicine at this time. -Patient is admitted under voluntary status to MHU for stabilization of psychiatric symptoms and safety. Patient has signed adult voluntary form and medication consent and is placed in patient's chart. She is satisfied with the medicines as is starting to work and does not want to change them. -Medications : Continue Prolixin 10 mg 2 times a day for mood stabilization/psychosis, trazodone 200 mg daily at bedtime for insomnia/mood, Lithobid 450 mg daily for mood stabilization, increase Lexapro 20 mg daily for mood/anxiety. -Ativan and Haldol PRN for agitation/aggression -NRT - not needed as patient does not smoke -SW on board for discharge planning. Encourage patient to participate in groups to work on coping skills. Likely discharged soon back home. Objective - Vital Signs Vital signs: Vital Signs Temp 98.3 F 05/05/23 07:00 Pulse 92 05/05/23 08:42 Resp 16 05/05/23 07:00 BP 96/51 05/05/23 08:42 Pulse Ox 96 05/05/23 07:00 FiO2 - Labs CBC & Chem 7: 04/29/23 00:53 04/29/23 00:53
[2023-05-07] MEDS: haloperidoL 5 MG TAB PO PRN (20:19)
[2023-05-07] MEDS: traZODone HCL 100 MG TAB PO SCH (20:19)
[2023-05-07] MEDS: LORazepam 1 MG TAB PO PRN (20:19)
[2023-05-07] MEDS: LITHIUM CARBONATE ER 450 MG TABLET.ER PO SCH (20:20)
[2023-05-08] MEDS: ASPIRIN 81 MG PO SCH (09:08)
[2023-05-08] MEDS: ESCITALOPRAM 20 MG TAB PO SCH (09:09)
[2023-05-08] MEDS: lisinopriL 10 MG TAB PO SCH (09:10)
[2023-05-08 09:11] VITALS: BP 102/52; PULSE 88; TEMP 98
--- NOTE | 2023-05-08 12:06 | P.DS ---
Providers Date of admission: 04/29/23 08:29 Expected date of discharge: 05/08/23 Attending physician: Néstor Reid MD Consults: 04/29/23 09:15 Consult Physician Routine Consulting Provider: Joe Luque Consult Reason/Comments: H & P and medical care Do you want consulting provider notified?: Yes Primary care physician: Bobby Fish MD - Discharge Diagnosis(es) (1) Schizoaffective disorder, depressive type Current Visit: Yes Status: Acute Priority: High Hospital Course: Admission HPI: Admission note was completed by Dr Wright "Edu is a 58-year-old female with long history of mental illness and carries a diagnoses of schizoaffective disorder who was hospitalized patient's family had contacted the police regarding patient and threatening to kill herself When seen today patient reports that she was feeling increasingly depressed and that her voices are bothersome She said that she had thoughts of wanting to kill herself and felt her family was better off without her She says that she has never had any relief from the voices in spite of different medications She states that he currently takes Prolixin, Lamictal, trazodone and Remeron She said that she also takes enalapril for her hypertension She says that her last psychiatric hospitalization was in 2020 under similar circumstances She says that she is tired of her current symptoms and she seems to spend most of her time sleeping and not taking care of herself She says that she lives in her own house and is on disability She admits that she does want to get better" Hospital course: Upon admission to the unit patient was directable and agreeable to commence treatment and signed adult voluntary form . Patient mainly kept to herself during her hospitalization and got along well with other patients on the unit and followed unit protocol. patient was up for meals and medications and took care of her personal hygiene and grooming. Patient was compliant with the medications and denied any side effects throughout hospital course. Patient was started on Prolixin PO and increased to a dose of 10 mg bid for psychosis/hallucinations, trazodone 200 mg daily at bedtime for insomnia/mood, Lithobid 450 mg daily for mood stabilization, Lexapro 20 mg daily for mood/anxiety. Patient was offered by technical document writer to be transitioned onto long-acting injection of Prolixin however patient adamantly declined this and states that she wants to stick with the by mouth meds. Patient spoke of her stressors however did not attend many group therapy meetings. Patient was also seen by medical team for history and physical exam. Throughout the course of the hospitalization patient gradually improved with regards to mood, anxiety, hallucination/psychosis, sleep and returned back to their baseline level of functioning. On the day of discharge patient denied any suicidal or homicidal ideations intent or plan denied any auditory or visual hallucinations. Patient endorsed wanting to live for her life and her health. The patient denied any access to guns or weapons. Patient denied any paranoia and did not endorse any delusions. Patient does not have a significant history of substance abuse and was counseled on abstaining from all substances including alcohol and marijuana. Patient was also counseled on the medications and need for regular compliance and was encouraged to follow-up with their outpatient appointment for mental health and also for primary care. patient is currently being followed by the ACT team for closer monitoring through [facility]. PAtient at this time currently does not have a gaurdian and it was advised to [facility] team to begin initiation of gaurdianship to help assist patient further and possibly look at alternative placement if needed Mental status exam: General Appearance: Patient appears to be older than stated age is alert, directable cooperative. Patient is in no acute distress and has improved hygiene and grooming Behavior: Patient is calmly seated without any agitated behavior. directable Speech: Patient's speech is fluent and nonpressured. concrete. Mood/Affect: Patient reports their mood is "alright", affect is congruent and constricted Suicidality/Homicidality: Patient denies having any suicidal or homicidal ideation intent or plan. Perceptions: Patient denies any auditory or visual hallucinations. Though content/process: There is no evidence of any delusional thought content and thought process is linear and goal-directed. poverty of content. Memory and concentration: AOX3, grossly intact for the purposes of this session. Can spell "WORLD" backwards correctly. Judgment and insight: chronically poor, however has improved with guarded prognosis Impression: Schizoaffective disorder depressive type Plan: -Continue with discharge today as patient has improved and stabilized psychiatrically and is not currently an imminent threat to herself and/or others. Patient will remain at chronically elevated risk for harm to self and/or others due to her chronically poor insight and judgment. -Continue medications: Prolixin by mouth 10 mg twice a day for psychosis/hallucinations, trazodone 20 mg daily at bedtime for insomnia/mood, Lithobid 450 mg daily for mood stabilization, Lexapro 20 mg daily for mood/anxiety. cogentin 1 mg daily prn for muscle spasms. -Patient was counseled on the need for medication compliance and appropriate follow-up at mental health and also primary care for medical issues. Patient verbalized understanding and agreed. -Social work to help coordinate pts discharge today and arrange with ACT team and cm for closer follow up. Her meds will be sent to the pharmacy for the ACT team to picking table worker. Social work also to arrange for patients follow up appointments with [facility] for psychiatric care along with follow up with primary care provider. -Patient counseled on abstaining from recreational drugs and marijuana and alcohol. Was informed/educated on the adverse effects on their physical and mental health. Patient verbally agreed and understood. -Patient was instructed to return to the hospital or seek immediate medical care if their psychiatric or medical symptoms do worsen or reoccur. Allergies Allergy/AdvReac Type Severity Reaction Status Date / Time risperidone AdvReac Intermediate Unknown, Verified 04/29/23 09:53 per pcp Laboratory Results WBC 18.1 k/uL (3.8-10.6) H 04/29/23 00:53 RBC 4.18 m/uL (3.80-5.40) 04/29/23 00:53 Hgb 12.9 gm/dL (11.4-16.0) 04/29/23 00:53 Hct 37.2 % (34.0-46.0) 04/29/23 00:53 MCV 89.1 fL (80.0-100.0) 04/29/23 00:53 MCH 30.8 pg (25.0-35.0) 04/29/23 00:53 MCHC 34.6 g/dL (31.0-37.0) 04/29/23 00:53 RDW 12.6 % (11.5-15.5) 04/29/23 00:53 Plt Count 427 k/uL (150-450) 04/29/23 00:53 MPV 7.5 04/29/23 00:53 Neutrophils % 79 % 04/29/23 00:53 Lymphocytes % 12 % 04/29/23 00:53 Monocytes % 8 % 04/29/23 00:53 Eosinophils % 0 % 04/29/23 00:53 Basophils % 0 % 04/29/23 00:53 Neutrophils # 14.3 k/uL (1.3-7.7) H 04/29/23 00:53 Lymphocytes # 2.1 k/uL (1.0-4.8) 04/29/23 00:53 Monocytes # 1.4 k/uL (0-1.0) H 04/29/23 00:53 Eosinophils # 0.0 k/uL (0-0.7) 04/29/23 00:53 Basophils # 0.0 k/uL (0-0.2) 04/29/23 00:53 Sodium 137 mmol/L (137-145) 04/29/23 00:53 Potassium 4.0 mmol/L (3.5-5.1) 04/29/23 00:53 Chloride 100 mmol/L (98-107) 04/29/23 00:53 Carbon Dioxide 20 mmol/L (22-30) L 04/29/23 00:53 Anion Gap 17 mmol/L 04/29/23 00:53 BUN 17 mg/dL (7-17) 04/29/23 00:53 Creatinine 1.55 mg/dL (0.52-1.04) H 04/29/23 00:53 Est GFR (CKD-EPI)AfAm 43 (>60 ml/min/1.73 sqM) 04/29/23 00:53 Est GFR (CKD-EPI)NonAf 37 (>60 ml/min/1.73 sqM) 04/29/23 00:53 Glucose 135 mg/dL (74-99) H 04/29/23 00:[address] Glu mg/dL 105 mg/dL 04/29/23 00:53 Hemoglobin A1c 5.3 % 04/29/23 00:53 Calcium 10.3 mg/dL (8.4-10.2) H 04/29/23 00:53 Total Bilirubin 0.6 mg/dL (0.2-1.3) 04/29/23 00:53 AST 28 U/L (14-36) 04/29/23 00:53 ALT 20 U/L (4-34) 04/29/23 00:53 Alkaline Phosphatase 59 U/L (38-126) 04/29/23 00:53 Total Protein 7.7 g/dL (6.3-8.2) 04/29/23 00:53 Albumin 4.8 g/dL (3.5-5.0) 04/29/23 00:53 TSH 0.400 mIU/L (0.465-4.680) L 04/29/23 19:34 Free T4 1.84 ng/dL (0.78-2.19) 04/29/23 19:34 [place] <0.2 mmol/L 04/29/23 00:53 Coronavirus (PCR) Not Detected (Not Detectd) 04/29/23 06:45 Blood Type A Positive 04/29/23 01:05 Blood Type Confirm A Positive 04/29/23 01:38 Blood Type Recheck No Previous Record 04/29/23 01:05 Bld Type Recheck Status CABO Indicated 04/29/23 01:05 Antibody Screen NEGATIVE 04/29/23 01:05 Spec Expiration Date 05/02/2023 - 230404/29/23 01:05 Vital Signs Temp 98 F 05/08/23 09:11 Pulse 88 05/08/23 09:11 Resp 16 05/05/23 07:00 BP 102/52 05/08/23 09:11 Pulse Ox 96 05/05/23 07:00 FiO2 Patient Condition at Discharge: Stable Plan - Discharge Summary Discharge Rx Participant: No New Discharge Prescriptions: New Benztropine Mesylate [Cogentin] 1 mg PO DAILY PRN 14 Days #14 tab PRN Reason: muscle spasms traZODone HCL [Desyrel] 200 mg PO HS 14 Days #14 tab Escitalopram [Lexapro] 20 mg PO DAILY 14 Days #14 tab fluPHENAZine [Prolixin 5MG] 10 mg PO BID 14 Days #28 tablet Continue Enalapril [Vasotec] 5 mg PO DAILY 14 Days #14 tab Hydrocortisone Cream [Hydrocortisone 2.5% Cream] 1 applic TOPICAL BID PRN PRN Reason: Dry Skin Triamcinolone 0.025% Cream [Kenalog 0.025% Cream] 1 applic TOPICAL BID PRN PRN Reason: Rash Aspirin EC [Ecotrin Low Dose] 81 mg PO DAILY 14 Days #14 tab Discontinued Zolpidem [Ambien] 10 mg PO HS PRN PRN Reason: Insomnia RABEprazole SODIUM 20 mg PO DAILY buPROPion XL [Wellbutrin XL] 300 mg PO DIRECTED traZODone HCL [Desyrel] 200 mg PO DIRECTED Escitalopram [Lexapro] 20 mg PO DIRECTED lamoTRIgine [LaMICtal] 100 mg PO W/SUPPER Discharge Medication List Hydrocortisone Cream [Hydrocortisone 2.5% Cream] 1 applic TOPICAL BID PRN 04/29/23 [History] Triamcinolone 0.025% Cream [Kenalog 0.025% Cream] 1 applic TOPICAL BID PRN 04/29/23 [History] Aspirin EC [Ecotrin Low Dose] 81 mg PO DAILY 14 Days #14 tab 05/08/23 [Rx] Benztropine Mesylate [Cogentin] 1 mg PO DAILY PRN 14 Days #14 tab 05/08/23 [Rx] Enalapril [Vasotec] 5 mg PO DAILY 14 Days #14 tab 05/08/23 [Rx] Escitalopram [Lexapro] 20 mg PO DAILY 14 Days #14 tab 05/08/23 [Rx] fluPHENAZine [Prolixin 5MG] 10 mg PO BID 14 Days #28 tablet 05/08/23 [Rx] traZODone HCL [Desyrel] 200 mg PO HS 14 Days #14 tab 05/08/23 [Rx] Follow up Appointment(s)/Referral(s): [facility] [Outside] - 05/10/23 1:00 pm (05/10/23 1:00-1:30 with HILARY LU) Bobby Fish MD [Primary Care Provider] - 1-2 days Activity/Diet/Wound Care/Special Instructions: Avoid the use of street drugs and alcohol. Take all medications as prescribed. When you are in need of refills on your medications, please contact your medical provider and/or outpatient psychiatrist to have this done. Please go to scheduled outpatient appointments for aftercare treatment. If symptoms return or become worse, call the crisis line at and/or go to the nearest emergency room for evaluation. Discharge Disposition: HOME SELF-CARE
== END 2023-05-08 18:27 | disposition home or self-care (01) | DRG 885 ==
LOC: EC 23:42 → 3MHU 04-29 08:29
PROVIDERS: ADMIT Psychiatry & Neurology Psychiatry; ATTEND Psychiatry & Neurology Psychiatry
PROC: 0HQEXZZ Repair Left Lower Arm Skin, External Approach (ICD-10-PCS; principal; 2023-04-29)
DX: F25.1 Schizoaffective disorder, depressive type (principal); R45.851 Suicidal ideations; F32.A Depression, unspecified; S61.512A Laceration without foreign body of left wrist, initial encounter; Z20.822 Contact with and (suspected) exposure to COVID-19; D72.829 Elevated white blood cell count, unspecified; N28.9 Disorder of kidney and ureter, unspecified; I10 Essential (primary) hypertension; G47.00 Insomnia, unspecified; F43.23 Adjustment disorder with mixed anxiety and depressed mood; Z91.148 Patient's other noncompliance with medication regimen for other reason; Z87.891 Personal history of nicotine dependence; Z79.899 Other long term (current) drug therapy; Z79.82 Long term (current) use of aspirin; Z88.8 Allergy status to other drugs, medicaments and biological substances
CPT/HCPCS: 12002; 36415; 80053; 80178; 82075; 83036; 84439; 84443; 85025; 86850; 86900; 86901; 87635; 90715; 99285

== ENCOUNTER 2024-01-01 13:41 | Emergency (ER) | payer MEDICARE ==
--- NOTE | 2024-01-01 14:07 | ED ---
Psych HPI - General Source: patient, RN notes reviewed Mode of arrival: ambulatory Limitations: no limitations <Katja Herbert - Last Filed: 01/01/24 14:05> <Joshua Mcclain - Last Filed: 01/01/24 14:34> <Santiago Silvestre - Last Filed: 01/01/24 22:28> - General Chief Complaint: Psychiatric Symptoms Stated Complaint: Mental Health Time Seen by Provider: 01/01/24 14:06 - History of Present Illness Initial Comments: This is a 58 year old female who presents to the emergency department for psychiatric evaluation. Patient has a hx schizoaffective disorder requiring prior psychiatric hospitalizations and reports auditory hallucinations. Denies any suicidal or homicidal ideations. (Katja Herbert) Patient brought in from [facility] for psychiatric evaluation history of schizophrenia. Patient actively responding to internal stimuli, states she is battling Satan. (Joshua Mcclain) - Related Data Home Medications Medication Instructions Recorded Confirmed [place] Carbonate 300 mg PO DIRECTED 01/01/24 01/01/24 RABEprazole SODIUM [Aciphex] 20 mg PO DAILY 01/01/24 01/01/24 Valbenazine Tosylate [Ingrezza] 40 mg PO DAILY 01/01/24 01/01/24 Zolpidem [Ambien] 10 mg PO DIRECTED 01/01/24 01/01/24 buPROPion XL [Wellbutrin XL] 300 mg PO DAILY 01/01/24 01/01/24 fluPHENAZine HCl 20 mg PO HS 01/01/24 01/01/24 Previous Rx's Medication Instructions Recorded Aspirin EC [Ecotrin Low Dose] 81 mg PO DAILY 14 Days #14 tab 05/08/23 Escitalopram [Lexapro] 20 mg PO DAILY 14 Days #14 tab 05/08/23 Allergies Allergy/AdvReac Type Severity Reaction Status Date / Time risperidone AdvReac Intermediate Unknown, Verified 01/01/24 13:59 per pcp Review of Systems ROS Other: All systems not noted in ROS Statement are negative. <Katja Herbert - Last Filed: 01/01/24 14:05> ROS Other: All systems not noted in ROS Statement are negative. <Joshua Mcclain - Last Filed: 01/01/24 14:34> ROS Other: All systems not noted in ROS Statement are negative. <Santiago Silvestre Rey - Last Filed: 01/01/24 22:28> ROS Statement: Those systems with pertinent positive or pertinent negative responses have been documented in the HPI. Past Medical History Past Medical History: Hypertension Additional Past Medical History / Comment(s): psoriasis History of Any Multi-Drug Resistant Organisms: None Reported Past Surgical History: No Surgical Hx Reported Past Anesthesia/Blood Transfusion Reactions: No Reported Reaction Past Psychological History: Bipolar, Schizoaffective Disorder, Schizophrenia Smoking Status: Never smoker Past Alcohol Use History: None Reported Past Drug Use History: None Reported - Past Family History Father History Unknown: Yes <Katja Herbert - Last Filed: 01/01/24 14:05> General Exam Limitations: no limitations <Katja Herbert - Last Filed: 01/01/24 14:05> General appearance: alert, in no apparent distress Head exam: Present: atraumatic, normocephalic Eye exam: Present: normal appearance, PERRL Neck exam: Present: normal inspection. Absent: tenderness, meningismus Respiratory exam: Present: normal lung sounds bilaterally. Absent: respiratory distress, wheezes Cardiovascular Exam: Present: regular rate, normal rhythm GI/Abdominal exam: Present: soft. Absent: distended, tenderness, guarding Extremities exam: Present: normal inspection Neurological exam: Present: alert. Absent: oriented X3 Psychiatric exam: Present: flat affect, other (Auditory hallucination) Skin exam: Present: warm, dry, intact <Joshua Mcclain - Last Filed: 01/01/24 14:34> - General Exam Comments Initial Comments: Visual Physical Exam Vital signs reviewed General: Well-appearing, nontoxic, no acute distress. Head: Normocephalic, atraumatic Eyes: PERRLA, EOMI ENT: Airway patent Chest: Nonlabored breathing Skin: No visual rash, normal skin tone Neuro: Alert and oriented 3 Musculoskeletal: No gross abnormalities (Katja Herbert) Course Vital Signs 01/01/24 01/01/24 13:56 17:48 Temperature 98.2 F Pulse Rate 105 H 82 Respiratory 20 18 Rate Blood Pressure 165/123 124/80 O2 Sat by Pulse 97 99 Oximetry Medical Decision Making <Katja Herbert - Last Filed: 01/01/24 14:05> <Joshua Mcclain N - Last Filed: 01/01/24 14:34> <Santiago Silvestre - Last Filed: 01/01/24 22:28> - Medical Decision Making I performed the QuickNote portion of this chart. Signed Katja Herbert PA-C. (Katja Herbert) Was pt. sent in by a medical professional or institution (HALLIE Dominguez, [employer] GUIDANCE COUNSELOR, urgent care, hospital, or care home...) When possible be specific @ -No Did you speak to anyone other than the patient for history (EMS, parent, family, police, friend...)? What history was obtained from this source @ -[facility] mental health staff Did you review nursing and triage notes (agree or disagree)? Why? @ -I reviewed and agree with nursing and triage notes Were old charts reviewed (outside hosp., previous admission, EMS record, old EKG, old radiological studies, urgent care reports/EKG's, care home records)? Report findings @ -No old charts were reviewed Differential Diagnosis (chest pain, altered mental status, abdominal pain women, abdominal pain men, vaginal bleeding, weakness, fever, dyspnea, syncope, headache, dizziness, GI bleed, back pain, seizure, CVA, palpatations, mental health, musculoskeletal)? @Differential Mental Health Depression, anxiety, bipolar, psychosis, schizophrenia, borderline personality, situational depression, adjustment disorder, behavioral disorder, brain tumor, malingering, substance abuse, encephalopathy, medication reaction, dementia, hypothyroidism, degenerative neurologic disorder, lupus.... This is not meant to be all-inclusive list EKG interpreted by me (3pts min.). @ -As above X-rays interpreted by me (1pt min.). @ -None done CT interpreted by me (1pt min.). @ -None done U/S interpreted by me (1pt. min.). @ -None done What testing was considered but not performed or refused? (CT, X-rays, U/S, la bs)? Why? @ -None What meds were considered but not given or refused? Why? @ -None Did you discuss the management of the patient with other professionals (professionals i.e. , HALLIE, [employer] GUIDANCE COUNSELOR, lab, RT, psych nurse, social science teacher, sports marketer, teacher, fare enforcement officer, case technician)? Give summary @ -No Was smoking cessation discussed for >3mins.? @ -No Was critical care preformed (if so, how long)? @ -No Were there social determinants of health that impacted care today? How? (Homelessness, low income, unemployed, alcoholism, drug addiction, transportation, low edu. Level, literacy, decrease access to med. care, custodial, rehab)? @ -No Was there de-escalation of care discussed even if they declined (Discuss DNR or withdrawal of care, Hospice)? DNR status @ -No What co-morbidities impacted this encounter? (DM, HTN, Smoking, COPD, CAD, Cancer, CVA, ARF, Chemo, Hep., AIDS, mental health diagnosis, sleep apnea, morbid obesity)? @ -Schizophrenia Was patient admitted / discharged? Hospital course, mention meds given and route, prescriptions, significant lab abnormalities, going to OR and other pertinent info. @Patient awaiting EPS evaluation. (Joshua Mcclain) Patient care was signed out to me by previous shift physician, Dr. Parker. Briefly, patient 58-year-old aggressive female presents emergency department for psych evaluation. Patient having auditory hallucinations. Patient evaluated at bedside yelling obscenities at me along with other staff. Patient became aggressive and required 4 point restraints. Patient given IM sedating medications Patient advised by EPS. Patient is pending transfer to psychiatric facility [facility] Diagnosis/symptom? @ -Acute psychosis Acute, or Chronic, or Acute on Chronic? @ -Acute on chronic Uncomplicated (without systemic symptoms) or Complicated (systemic symptoms)? @ -Complicated Side effects of treatment? @ -None Exacerbation, Progression, or Severe Exacerbation] @ -No Poses a threat to life or bodily function? @ -yes (Santiago Silvestre) Disposition <Katja Herbert - Last Filed: 01/01/24 14:05> <Joshua Mcclain - Last Filed: 01/01/24 14:34> Time of Disposition: 18:29 <Santiago Silvestre - Last Filed: 01/01/24 22:28> Clinical Impression: Acute psychosis Disposition: TRANSFER TO PSYCH HOSP/UNIT Condition: Serious Referrals: [facility] [Primary Care Provider] - 1-2 days
[2024-01-01 14:10] VITALS: TEMP 98.2
[2024-01-01] MEDS: OLANZapine 10 MG VIAL IM STA (17:05)
[2024-01-01] MEDS: LORazepam 2 MG/ML INJ IM STA (17:05)
[2024-01-01 17:51] VITALS: BP 124/80; PULSE 82; RESP 18
== END 2024-01-01 23:57 ==
LOC: EC 13:41
DX: F29 Unspecified psychosis not due to a substance or known physiological condition (principal); I10 Essential (primary) hypertension; Z79.899 Other long term (current) drug therapy; Z88.8 Allergy status to other drugs, medicaments and biological substances
CPT/HCPCS: 82075; 99285; 96372 ×2; J2060